=== PATIENT | female | born 1960 | race Caucasian/White ===

== ENCOUNTER 2023-03-13 02:13 | Observation (INO) | payer OTHER ==
--- OUTSIDE RECORDS SUMMARY | 2023-03-13 02:16 | XMS REPORT | Clinical Summary ---
:1960 Author Organization [facility] Center Address [address] [place] [address] Care Team Providers Name Role Phone Nubia Mccormick MD Unavailable Govind Luna MD Primary Care Provider Edgar Hartley MD Unavailable Zamzam Andrade DDS Unavailable [phone] Scott Man DMD Unavailable Allergies No known active allergies Medications Medication Sig Dispensed Refills Start End Date Status Date lisinopril Take 1 0 Active (PRINIVIL,ZESTRIL) 20 tablet (20 1 mg tablet mg) by mouth daily. hydroCHLOROthiazide Take 1 0 Active (HYDRODIURIL) 25 mg tablet (25 1 tablet mg) by mouth daily. omeprazole (PriLOSEC) Take 1 0 Active 20 mg capsule capsule (20 mg) by mouth. amLODIPine (NORVASC) 5 0 Active mg tablet 1 levothyroxine Take 1 0 Active (SYNTHROID, LEVOTHROID) tablet (75 1 75 mcg tablet mcg) by mouth every morning. etodolac (LODINE) 500 0 Active MG tablet 2 traMADol (ULTRAM) 50 mg Take 1 0 Active tablet tablet (50 mg) by mouth every 6 (six) hours as needed. fexofenadine (MAX) Take by 0 07/27/2 0 Discontinued 60 mg tablet mouth daily 23 (Othe r ) as needed. traMADol (Ultram) 50 mg Take 1 30 tablet 0 Discontinued tabletIndications: tablet (50 2 22 (Therapy Acquired deformity of mg) by mouth completed) nose, Basal cell every 6 carcinoma of skin of (six) hours nose, Postoperative as needed pain for moderate pain. cyclobenzaprine 0 06/26/20 Disc ontinued (FLEXERIL) 10 mg tablet 2 22 cyclobenzaprine Take 1 20 tablet 0 02/15/20 Disc ontinued (FLEXERIL) 10 mg tablet (10 2 23 (O ther ) tabletIndications: mg) by mouth Postoperative pain at bedtime. Active Problems Patient Care Coordination Note Formatting of this note might be differe nt from the original. COVID 19 not detected on 04/30/22 done [facility] 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 Head and Neck Surgery and her local greenhouse or nursery transplanter. She was instructed that she may apply Aq uaphor to help with her nasal dryness as Nasogel was too aqueous. Hypertension Arthritis Encounters Date Type Specialty Care Team Description 02/13/2023 Office Visit Plastic Surgery Tessa Whitfield PA Acquired absence of tyron Maldonado MD 02/13/2023 Travel 12/11/2022 Follow-Up Dermatology Dariel Watts, Melanocytic nevus of trunk (Primary Dx); Basal cell carc inoma of skin of nose; Senile angioma; Lentigo; Seborrheic travis tosis 12/11/2022 Travel 11/14/2022 Office Visit Plastic Surgery Joel, Acquired abs ence of MD tyron Hdez 11/14/2022 Hospital Encounter Dental Oncology Scott Man A cquired absence of nose (Primary Dx); DMD Basal cell carc inoma of skin of nose; Basal cell carc inoma of nose 11/14/2022 Travel 11/12/2022 Orders Only Dental Oncology Kianna Almazan, CCA 07/18/2022 Office Visit Plastic Surgery Tessa Whitfield PA Acquired absence of Chrissieo nose MD Lemuel 07/18/2022 Travel 07/03/2022 Surgery Joel, REARRANGEMENT O F MD Lemuel ADJACENT TISSUE FOR REPAIR OF DEFEC T OF EYELID(S) 07/03/2022 Anesthesia Event Dylan Narvaez MD 07/03/2022 Hospital Encounter Joel, Acquired absence of MD tyron Hdez 07/03/2022 Travel 07/02/2022 Anesthesia Event Anesthesiology Dalia Alva RN 07/02/2022 Hospital Encounter Cardiology Tessa Whitfield PA Acqui red absence of nose; Other specified preoperative examination 07/02/2022 Office Visit Plastic Surgery Joel, Acquired abs ence of MD tyron Hdez 07/02/2022 Clinical Support Tessa Davila P A Suspected COVID-19 (Primary Dx); Rebekah Pleitez, Acquired a bsence of nose RN 07/02/2022 Hospital Encounter Lab Tessa Whitfield PA Acqui red absence of nose; Other specified preoperative examination 07/02/2022 POEM Appointments Anesthesiology Govind Luna, Acqu irevenkatesh absence of MD ackerman 07/02/2022 Travel 06/27/2022 Orders Only Plastic Surgery Tessa Whitfield PA Acquired absence of nose (Primary Dx); Other specified preoperative examination 06/26/2022 Orders Only Plastic Surgery Tessa Whitfield PA Postoper ative pain (Primary Dx) 05/31/2022 Consult Dermatology Dariel Watts, Personal hi story of other malignant neoplasm of skin (Primary Dx); Basal cell carc inoma of skin of nose; History of radi ation therapy; Acquired deform ity of nose; Basal cell carc inoma of nose; Actinic keratos is; Seborrheic travis tosis; Melanocytic nev us of trunk; Senile angioma 05/31/2022 Travel 05/03/2022 Hospital Encounter Dental Oncology Scott Man S, Yovana johnnie cell carcinoma of skin of nose (Primary Dx); DMD Acquired absenc e of nose; Basal cell carc inoma of nose 05/03/2022 Travel 04/17/2022 Orders Only Dental Oncology Kianna Almazan, CCA 04/11/2022 Hospital Encounter Head and Neck Miller Sarabia, Acqui red deformity of nose (Primary Dx); Surgery PA Basal cell carc inoma of skin of nose; History of radi ation therapy; Basal cell carc inoma of nose; Encounter for f ollow-up examination after completed treatment for malignant neoplasm 04/11/2022 Office Visit Plastic Surgery Joel, Acquired abs ence of MD Lemuel nose 04/11/2022 Hospital Encounter Lab Miller Sarabia, Basal cell carcinoma of skin of nose; PA History of radi ation therapy 04/11/2022 Ancillary Radiology Miller Sarabia, Basal cell c arcinoma of skin of nose; Procedure PA History of radi ation therapy 04/11/2022 Orders Only Radiology Herber Singleton PA 04/11/2022 Travel 03/27/2022 Orders Only Head and Neck Miller Sarabia, Basal cell carcinoma of skin of nose (Primary Dx); Surgery PA History of radi ation therapy after 03/13/2022 Surgical History Surgery Date Site/Laterality Comments KNEE SURGERY Right multiple knee campoverde rgeries RIGHT knee AZ EXCISION MALIGNANT LESION 10/20/2020 Midline Pro cedure: EXCISION OF F/E/E/N/L 0.5 CM/< MALIGNANT LES ION OF NOSE WITH DELAYED YOEL SURE; Surgeon: Govind Luna MD; Location: MAIN O R; Service: HN - HEAD & NECK SURGERY AZ FREE SKIN FLAP 09/26/2021 Arm Lower/Left Procedure: SAGRARIO E SKIN OR W/MICROVASCULAR ANASTOMOSIS FASC IOCUTANOUS FLAP; Surgeon: Lemuel Maldonado MD; Location: [facility]; Service: PLS - P LAST SURGERY Medical devices from this surgery are in t [employer] section. AZ TISSUE MAINFRAME ARCHITECT PLACEMENT 09/26/2021 Forehead/N/A Pro cedure: Placement of BREAST RECONSTRUCTION foreheadTI SSUE MAINFRAME ARCHITECT; Surgeon: Lemuel Maldonado MD; Location[place] [facility]; Service: PLS - P LAST SURGERY Medical devices from this surgery are in [employer] section. AZ FTH/GFT FREE W/DIRECT 09/26/2021 Abdomen/Midline Procedu re: FULL THICKNESS CLOSURE TRUNK 20 CM/< GRAFT OF T RUNK; Surgeon: Lemuel Maldonado MD; Location: MAIN O R; Service: PLS - PLASTIC [place]AMP[place] RGERY Medical devices from this surgery are in [employer] section. AZ EXC B9 LESION MRGN XCP SK 09/26/2021 Face/Left Pro cedure: EXCISION OF TG F/E/E/N/L/M 0.5CM/< BENIGN LE STEPHANIE OF FACE/EAR/EYELID/ NOSE/LIP/MUC OUS MEMB, INCL M ARGINS (EXCEPT SKIN TAG ); Surgeon: Lemuel Maldonado MD; Location: MAIN O R; Service: PLS - PLASTIC [place] RG[place] Medical devices from this surgery are in [employer] section. AZ TEMPORARY CLOSURE EYELIDS 09/26/2021 Eyelid/Bilateral Pr ocedure: TEMPORARY CLOSURE SUTURE OF EYELIDS USING SUTURE; Surgeon: Lemuel Maldonado MD; [place] [facility]; Service: PLS - P [facility] SURGERY Medical devices from this surgery are in [employer] section. AZ FOREHEAD FLAP 11/09/2021 Forehead/Midline Procedure: FOR EHEAD FLAP; W/PRESERVATION VASCULAR Surgeon: ANA Cota MD; Location: [facility]; Service: PLS - P LASTIC SURGERY AZ REMOVAL TISSUE MAINFRAME ARCHITECT 11/09/2021 Breast/Midline Proce dure: REMOVAL OF TISSUE W/O INSERTION IMPLANT MAINFRAME ARCHITECT; Surgeon: Lemuel Maldonado MD; Lo cation: MAIN OR; Service: PLS - PLASTIC SURGERY AZ CARTILAGE GRAFT 11/09/2021 Chest/N/A Procedure: CO STOCHONDRAL COSTOCHONDRAL CARTILAGE GRAFT; Surgeon: Lemuel Maldonado MD; Location: MAIN O R; Service: PLS - PLASTIC [place]AMP[place] RGERY AZ FTH/GFT FREE W/DIRECT 11/09/2021 N/A Procedu re: FULL THICKNESS CLOSURE N/E/E/L 20 SQ CM/< GRAFT OF NOSE/EAR/EYELID/ LIP; Surgeon: Lemuel Maldonado MD; Location[place]; Service: PLS - P LASTIC SURGERY AZ ADJT TIS TRNSFR/REARRGMT 11/14/2021 Midline Proc edure: REARRANGEMENT OF E/N/E/L DFCT 10 SQ CM/< ADJACENT TISSUE FOR REPAIR OF DEFECT OF NOS E; Surgeon: Lemuel Maldonado MD; Location: MAIN O R; Service: PLS - PLASTIC [place] AZ IV INJECTION TEST VASCULAR 11/14/2021 Forehead/Midline P rocedure: INTRAVENOUS FLOW FLAP/GRAFT INJECTION OF AGE NT (EG, FLUORESCEIN) TO TEST VASCULAR FLOW IN FLAP OR GRAFT (SPY); Royce geon: Lemuel Maldonado MD; Location: MAIN O R; Service: PLS - PLASTIC [place] RG[place] AZ CARTILAGE GRAFT 12/12/2021 Chest/N/A Procedure: CO STOCHONDRAL COSTOCHONDRAL CARTILAGE GRAFT; Surgeon: Lemuel Maldonado MD; Location: MAIN O R; Service: PLS - PLASTIC [place] RG[place] AZ ADJT TIS TRNSFR/REARRGMT 12/12/2021 Midline Proc edure: REARRANGEMENT OF E/N/E/L DFCT 10 SQ CM/< ADJACENT TISSUE FOR REPAIR OF DEFECT OF NOS E; Surgeon: Lemuel Maldonado MD; Location: MAIN O R; Service: PLS - PLASTIC [place] AZ ADJT TIS TRNSFR/REARRGMT 01/18/2022 Midline Proc edure: REARRANGEMENT OF E/N/E/L DFCT 10 SQ CM/< ADJACENT TISSUE FOR REPAIR OF DEFECT OF NOS E; Surgeon: Lemuel Maldonado MD; Location: MAIN O R; Service: PLS - PLASTIC [place] AZ ADJT TIS TRNSFR/REARRGMT 02/22/2022 Forehead/Midline Pro cedure: REARRANGEMENT OF E/N/E/L DFCT 10 SQ CM/< ADJACENT TISSUE FOR REPAIR OF DEFECT OF NOS E; Surgeon: Lemuel Maldonado MD; Location: [facility]; Service: PLS - PLASTIC [place] AZ DELAY FLAP/SCTJ FLAP 02/22/2022 Face/Midline Procedur e: DELAY OF FLAP AT EYELIDS NOSE EARS/LIPS EYELID, N OSE, EAR, LIP; Surgeon: Lemuel Maldonado MD; Location[place] [facility] [place]; Service: PLS - P LASTIC SURGERY AZ ADJT TIS TRNSFR/REARRGMT 07/03/2022 Face/N/A Proc edure: REARRANGEMENT OF E/N/E/L DFCT 10 SQ CM/< ADJACENT TISSUE FOR REPAIR OF DEFECT OF EYE LID(S); Surgeon: Lemuel Maldonado MD; Location[place]; Service: PLS - P LASTIC SURGERY AZ ADJT TIS TRNSFR/REARRGMT 07/03/2022 Face/N/A Proc edure: REARRANGEMENT OF E/N/E/L DFCT 10 SQ CM/< ADJACENT TISSUE FOR REPAIR OF DEFECT OF NOS E; Surgeon: Lemuel Maldonado MD; Location: MAIN O R; Service: PLS - PLASTIC [place] AZ ADJT TIS TRNS/REARGMT 07/03/2022 N/A Procedu re: REARRANGEMENT OF F/C/C/M/N/A/G/H/F 10SQCM/< ADJAC ENT TISSUE FOR REPAIR OF DEFECT OF FOR EHEAD; Surgeon: Lemuel Maldonado MD; [place]; Service: PLS - P LASTIC SURGERY AZ NASAL ENDOSCOPY DIAGNOSTIC 07/03/2022 Nose/N/A Pr ocedure: UNILATERAL OR UNI/BI SPX BILATERAL DIAGNO STIC ENDOSCOPY OF NOS E; Surgeon: Lemuel Maldonado MD; Location: MAIN O R; Service: PLS - PLASTIC [place] [facility] Medical History Medical History Date Comments Hypertension Arthritis Herpes zoster Family History Medical History Relation Name Comments Prostate cancer Father Luis Carlos Galvin Passed with hear t failure Breast cancer Sister Diana Yepez . Relation Name Status Comments Father Luis Carlos Galvin Sister Diana Yepez Social History Tobacco Use Types Packs/Day Years Used Date Smoking Tobacco: Never Smokeless Tobacco: Never Tobacco Cessation: Counseling Given: Not Answered Alcohol Use Standard Drinks/Week Comments Yes 0 (1 standard drink = 0.6 oz pure alcoho l) weekend occasional Sex Assigned at Date Recorded Female 12/10/2020 6:33 PM CDT Job Start Date Occupation Industry Not on file Not on file Not on file Obstetrics History Last Filed Vital Signs Vital Sign Reading Time Taken Comments Blood Pressure 149/74 02/13/2023 11:32 AM CDT Pulse 68 02/13/2023 10:24 AM CDT Temperature 36.6 C (97.9 F) 02/13/2023 10:24 AM CDT Respiratory Rate 18 02/13/2023 10:24 AM CDT Oxygen Saturation 99% 02/13/2023 10:24 AM CDT Inhaled Oxygen Concentration - - Weight 110.6 kg (243 lb 13.3 oz) 07/02/2022 9:27 AM ELDERLY SITTER Height 164 cm (5' 4.57") 07/02/2022 9:27 AM ELDERLY SITTER Body Mass Index 41.12 07/02/2022 9:27 AM ELDERLY SITTER Plan of Treatment Date Type Specialty Care Team Description 04/11/2023 Appointment Lab Miller Sarabia PA [address], [place] [address] (Wo rk) 04/11/2023 Appointment Radiology Miller Sarabia PA [address], [place] [address] (Wo rk) 04/11/2023 Consult Survivorship - Head and Fei Sarabia PA Neck [address], [place] [address] (Wo rk) 06/18/2023 Follow-Up Dermatology Dariel Watts MD [address], [place] [address] (Wo rk) Health Maintenance Due Date Last Done Comments COVID-19 Vaccination (#1) 05/24/1961 Medical Devices Implanted Type Area Form Stripper Device Shelf Model / Identifier Expiration Serial / Date Lot Stitching Department Supervisor Microvascular Anastomotic Device 3.0mm - [id number] CardioPulm Left: Neck 3M SUZY 02/28/2026 [id number] / Implanted: Qty: 1 on 09/26/2021 by Lemuel Maldonado MD at [facility] / [id number] Tissue Lottery Sales Clerk Rectangle 50cc - [id number] Implant N/A: M ENTOR SUZY 08/16/2025 [id number] / Implanted: Qty: 1 on 09/26/2021 by Lemuel Maldonado MD at [facility] Forehead [id number] / Explanted: 11/09/2021 by Lemuel Maldonado MD (Quantity not on file) [id number] Right Acl Repair Procedures Procedure Name Priority Date/Time Associated Comments Diagnosis LASER HAIR REDUCTION Routine 02/13/2023 11:31 AM Acquired abse nce of Results for this CDT nose procedure are i n the results section. LASER HAIR REDUCTION Routine 11/14/2022 11:14 AM Acquired abse nce of Results for this CDT nose procedure are i n the results section. POC GLUCOSE SCREEN Routine 07/03/2022 11:21 AM Re sults for this ELDERLY SITTER procedure are i n the results section. UNILATERAL OR 07/03/2022 6:09 AM Acquired absence of BILATERAL DIAGNOSTIC ELDERLY SITTER nose ENDOSCOPY OF NOSE Special Needs SK @ 5ATotal plastics time 2 hours +45 min; drill with neto chuckie please REARRANGEMENT OF ADJACENT TISSUE 07/03/2022 6:09 AM ELDERLY SITTER Acquired absence of nose FOR REPAIR OF DEFECT OF FOREHEAD Special Needs SK @ 5ATotal plastics time 2 hours +45 min; drill with neto chuckie please REARRANGEMENT OF ADJACENT TISSUE 07/03/2022 6:09 AM ELDERLY SITTER Acquired absence of nose FOR REPAIR OF DEFECT OF NOSE Special Needs SK @ 5ATotal plastics time 2 hours +45 min; drill with neto chuckie please REARRANGEMENT OF ADJACENT TISSUE 07/03/2022 6:09 AM ELDERLY SITTER Acquired absence of nose FOR REPAIR OF DEFECT OF EYELID(S) Special Needs SK @ 5ATotal plastics time 2 hours +45 min; drill with neto chuckie please POC GLUCOSE SCREEN Routine 07/03/2022 6:06 AM Res ults for this ELDERLY SITTER procedure are i n the results section. TMP INTERPRETATION STAT 07/03/2022 6:01 AM Res ults for this ANTIBODY SCREEN NEGATIVE ELDERLY SITTER pro cedure are in the results section. CLOT EXPIRATION DATE STAT 07/03/2022 6:01 AM R esults for this ELDERLY SITTER procedure are i n the results section. ANTIBODY SCREEN STAT 07/03/2022 6:01 AM Result s for this ELDERLY SITTER procedure are i n the results section. ABORH STAT 07/03/2022 6:01 AM Results f or this ELDERLY SITTER procedure are i n the results section. TYPE AND SCREEN STAT 07/03/2022 6:01 AM ELDERLY SITTER FRACTIONATED BILIRUBIN Routine 07/02/2022 8:42 AM Acquired abs ence of Results for this ELDERLY SITTER nose procedure are in Other specified the results preoperative section. examination TOTAL PROTEIN Routine 07/02/2022 8:42 AM Acquired absence of R esults for this ELDERLY SITTER nose procedure are in Other specified the results preoperative section. examination ASPARTATE Routine 07/02/2022 8:42 AM Acquired absence of Re sults for this AMINOTRANSFERASE ELDERLY SITTER nose procedure are in Other specified the results preoperative section. examination ALANINE AMINOTRANSFERASE Routine 07/02/2022 8:42 AM Acquired a bsence of Results for this ELDERLY SITTER nose procedure are in Other specified the results preoperative section. examination ALKALINE PHOSPHATASE Routine 07/02/2022 8:42 AM Acquired absen ce of Results for this ELDERLY SITTER nose procedure are in Other specified the results preoperative section. examination ALBUMIN LEVEL Routine 07/02/2022 8:42 AM Acquired absence of R esults for this ELDERLY SITTER nose procedure are in Other specified the results preoperative section. examination CALCIUM LEVEL TOTAL Routine 07/02/2022 8:42 AM Acquired absenc e of Results for this ELDERLY SITTER nose procedure are in Other specified the results preoperative section. examination .GLOMERULAR FILTRATION Routine 07/02/2022 8:42 AM Acquired abs ence of Results for this RATE ELDERLY SITTER nose procedure are in Other specified the results preoperative section. examination SERUM CREATININE Routine 07/02/2022 8:42 AM Acquired absence o f Results for this ELDERLY SITTER nose procedure are in Other specified the results preoperative section. examination ELECTROLYTE PANEL Routine 07/02/2022 8:42 AM Acquired absence of Results for this ELDERLY SITTER nose procedure are in Other specified the results preoperative section. examination BLOOD UREA NITROGEN Routine 07/02/2022 8:42 AM Acquired absenc e of Results for this ELDERLY SITTER nose procedure are in Other specified the results preoperative section. examination GLUCOSE LEVEL Routine 07/02/2022 8:42 AM Acquired absence of R esults for this ELDERLY SITTER nose procedure are in Other specified the results preoperative section. examination MANUAL DIFFERENTIAL Routine 07/02/2022 8:42 AM Acquired absenc e of Results for this ELDERLY SITTER nose procedure are in Other specified the results preoperative section. examination Results CBC Routine 07/02/2022 8:42 AM Acquired absence of Re sults for this ELDERLY SITTER nose procedure are in Other specified the results preoperative section. examination HEMOGLOBIN A1C Routine 07/02/2022 8:42 AM Acquired absence of Results for this ELDERLY SITTER nose procedure are in Other specified the results preoperative section. examination COMPREHENSIVE METABOLIC Routine 07/02/2022 8:42 AM Acquired ab sence of PANEL ELDERLY SITTER nose Other specified preoperative examination COMPLETE BLOOD COUNT W/ Routine 07/02/2022 8:42 AM Acquired ab sence of DIFFERENTIAL ELDERLY SITTER nose Other specified preoperative examination COVID-19 (SARS-COV-2) Routine 07/02/2022 8:25 AM Suspected COV ID-19 Results for this PCR - ASYMPTOMATIC - [facility] ELDERLY SITTER proc edure are in the results section. EKG, 12-LEAD (SCHEDULED) Routine 07/02/2022 Acquired absence of nose Other specified preoperative examination .GLOMERULAR FILTRATION Routine 04/11/2022 8:00 AM Basal cell Results for this RATE CDT carcinoma of skin procedure are in of nose the results History of section. radiation therapy SERUM CREATININE Routine 04/11/2022 8:00 AM Basal cell Resul ts for this CDT carcinoma of skin procedure are in of nose the results History of section. radiation therapy FREE THYROXINE Routine 04/11/2022 8:00 AM Basal cell Results for this CDT carcinoma of skin procedure are in of nose the results History of section. radiation therapy THYROID STIMULATING Routine 04/11/2022 8:00 AM Basal cell Re sults for this HORMONE CDT carcinoma of skin procedure are in of nose the results History of section. radiation therapy SERUM CREATININE Routine 04/11/2022 8:00 AM Basal cell CDT carcinoma of skin of nose History of radiation therapy BLOOD UREA NITROGEN Routine 04/11/2022 8:00 AM Basal cell Re sults for this CDT carcinoma of skin procedure are in of nose the results History of section. radiation therapy CT SOFT TISSUE NECK W Routine 04/11/2022 7:29 AM Basal cell Results for this CONTRAST CDT carcinoma of skin procedure are in of nose the results History of section. radiation therapy POC CREATININE Routine 04/11/2022 6:51 AM Results for this CDT procedure are i n the results section. after 03/13/2022 Results LASER HAIR REDUCTION (02/13/2023 11:31 AM CDT) Lemuel Singh MD - 02/13/2023 11:31 AM CDT MARY Gilmore 02/18/2023 12:34 PM Laser procedure Site: Nose Date/Time: 02/13/2023 11:31 AM Provider Information: Performed by: MARY Gilmore Authorized by: MARY Gilmore Steam Shovelman present?: yes Steam Shovelman: Lemuel Maldonado MD Patient Diagnosis: Pre-operative diagnosis: Hirsutism of na rachel flap Post-operative diagnosis: unchanged Indication: Indications for procedure: to provide th erapeutic benefit and to provide definitive treatment Anesthesia: Local anesthesia used?: local anesthesia not used Sedation: Patient sedated?: patient not sedated Procedure Details: Procedure was discussed with patient and consent was obtained. Patient was positioned comfortably, timeout performe d, safety eye goggles were provided to the patient. Hair on flap wa s trimmed. Laser was set to appropriate setting, refer to JANNETH lazcano fo r more details. Fluence 40 J/cm2, Spot size 15 mm, On time 25, count of 11 (1 test shot). Patient tolerated procedure well. Specimen(s) Removed: Specimen(s) removed: no specimen collect ed Estimated Blood Loss: Estimated blood loss: none Patient Disposition: Patient disposition: discharge to home Comments: In the process of trying to change the h andpiece for a smaller spot size to get the inferior aspect of the nasal flap it was realized that there was a missing connection piece which pro hibited us from completing the procedure entirely. She will return [facility] when the laser has been fixed for additional therapy. Tessa HERNANDEZ PROCEDURE/MINOR SURGICAL ORD ERABLES LASER HAIR REDUCTION (11/14/2022 11:14 AM CDT) Lemuel Singh MD - 11/14/2022 11:14 AM CDT MARY Gilmore 11/16/2022 1:05 PM Laser procedure Site: Nasal reconstruction/forehead flap Laterality (if applicable): bilateral Date/Time: 11/14/2022 11:14 AM Provider Information: Performed by: MARY Gilmore Authorized by: Lemuel Maldonado MD Steam Shovelman present?: yes Steam Shovelman: MARY Gilmore Patient Diagnosis: Pre-operative diagnosis: Hirsutism of na rachel reconstruction flap Post-operative diagnosis: unchanged Indication: Indications for procedure: to provide de finitive treatment Anesthesia: Local anesthesia used?: local anesthesia not used Sedation: Patient sedated?: patient not sedated Procedure Details: Procedure was discussed with patient and consent was obtained. Patient was positioned comfortably, timeout performe d, safety eye glasses were provided to the patient. Hair on flap wa s trimmed. Laser was set to appropriate setting, refer to JANNETH note fo r more details. Fluence 55 J/cm2, Spot size 12 mm, On time 25 count of 3 ( 1 test shot). Due to concern for interaction with patient's face makeup, makeup was removed and fluence reduced to 40 J/cm2, Spot size 12 mm, On time 25 count of 5(1 test shot). Patient tolerated procedure well. Specimen(s) Removed: Specimen(s) removed: no specimen collect ed Estimated Blood Loss: Estimated blood loss: none Complications: Complications: none Patient Disposition: Patient disposition: discharge to home Comments: Patient will return in 3 month for laser procedure. She was advised to not wear makeup for procedure. Lemuel Maldonado MD PROCEDURE/MINOR SURGICAL ORD ERABLES (ABNORMAL) POC Glucose Screen (07/03/2022 11:21 AM ELDERLY SITTER)Only the most recent of2 resultswithin the time period is included. P athologist Signature POC Glucose 126 (H) 70 - 99 POC TELCOR mg/dL Comment: RN Notified Capillary blood samples, e.g. obtained b y fingerstick, may have inaccurate results in patients with decreased peripheral blood flow. Method description: All results are jose francisco ured using Electrochemistry test methodology. The glucose in the sample mixes with the reagents on the test strip. The reaction produces an electric current. The amount of current produced is proportion al to the glucose concentration in the blood. PO Sample Type Capillary POC TELCOR Performing Lab [facility] POC TELCO R Comment: [facility], [facility] [place] [address]; Lab Direct or: Erin Bridges MD Specimen Anatomical Collection Method Collection Time Receive d Time (Source) Location / / Volume Laterality Blood 07/03/2022 11:21 07/03/2022 AM ELDERLY SITTER 11:21 AM ELDERLY SITTER Lemuel Maldonado MD POCT ORDERABLES - DEVICE Performing Organization Address City/[facility] Phon e Number POC TELCOR Unless otherwise noted, [place] [address] lab tests performed by: Division of Pathology and Laboratory Medicine [address] [place] [address] POC TELCOR Unless otherwise notes, [place] [address] lab tests performed by: Division of Pathology and Laboratory Medicine [address] [place] [address] Clot Expiration Date (07/03/2022 6:01 AM ELDERLY SITTER) [facility] Signature T & S 07/06/2022 [facility] Specimen Anatomical Collection Method Collection Time Receive d Time (Source) Location / / Volume Laterality Blood 07/03/2022 6:01 AM 2 6:56 ELDERLY SITTER AM ELDERLY SITTER Lemuel Maldonado MD BLOOD BANK TEST ORDERABLES Performing Organization Address [facility] Phon e Number [facility] Unless otherwise noted, [place] [address] CENTER all lab tests performed by: Division of Pathology and Laboratory Medicine [address] [place] [address] TMP Interpretation Antibody Screen Negative (07/03/2022 6:01 AM ELDERLY SITTER) [facility] TMP Auto Neg At the [facility] patient plasma shows no evidence of RBC alloantibodi es. Comment: MADELIN GARAY MD, PhD - [id number] Dictated by: MADELIN GARAY MD, Ph D - [id number] Dictated Date/Time: 07.03.2022 11:11 AM ELDERLY SITTER Transcribed Date/Time: 07.03.2022 11:11 AM ELDERLY SITTER Electronically Signed By: MADELIN GARAY MD, PhD - [id number] on 07.03.2022 11:11 AM Specimen Anatomical Collection Method Collection Time Receive d Time (Source) Location / / Volume Laterality Blood 07/03/2022 6:01 AM 2 6:56 ELDERLY SITTER AM ELDERLY SITTER Lemuel Maldonado MD BLOOD BANK TEST ORDERABLES Performing Organization Address City/State/ZIP Code Phon e Number [facility] Unless otherwise noted, [address] all lab tests performed by: Division of Pathology and Laboratory Medicine [address] [place] [address] ABORh (07/03/2022 6:01 AM ELDERLY SITTER) athologist [facility] ABORh. A POS [facility] Specimen Anatomical Collection Method Collection Time Receive d Time (Source) Location / / Volume Laterality Blood 07/03/2022 6:01 AM 2 6:56 ELDERLY SITTER AM ELDERLY SITTER Lemuel Maldonado MD BLOOD BANK TEST ORDERABLES Performing Organization Address City/[facility]/ZIP Code Phon e Number [facility] Unless otherwise noted, [address] all lab tests performed by: Division of Pathology and Laboratory Medicine [address] [place] [address] Antibody Screen (07/03/2022 6:01 AM ELDERLY SITTER) [facility] ABSC. Negative ABSC [facility] Specimen Anatomical Collection Method Collection Time Receive d Time (Source) Location / / Volume Laterality Blood 07/03/2022 6:01 AM 2 6:56 ELDERLY SITTER AM ELDERLY SITTER Lemuel Maldonado MD BLOOD BANK TEST ORDERABLES Performing Organization Address City/[facility] Phon e Number [facility] Unless otherwise noted, [address] all lab tests performed by: Division of Pathology and Laboratory Medicine [address] [place] [address] (ABNORMAL) .Serum Creatinine (07/02/2022 8:42 AM ELDERLY SITTER)Only the most recent of2 resultswithin the time period is included. [facility] Creatinine 1.06 (H) 0.51 - 0.95 [facility] mg/dL Comment: Testing Performed at [facility] Lab Am bulatory Care Bldg, [address] [facility], [address], [place] [address] Specimen Anatomical Collection Method Collection Time Receive d Time (Source) Location / / Volume Laterality Blood 07/02/2022 8:42 AM 2 8:55 ELDERLY SITTER AM ELDERLY SITTER Tessa HERNANDEZ LAB BLOOD ORDERABLES Performing Organization Address City/State/ZIP Code Phon e Number [facility] [place] [address] [address] (ABNORMAL) .CBC (07/02/2022 8:42 AM ELDERLY SITTER) P athologist Signature WBC 8.3 4.0 - 11.0 [facility] K/uL RBC 4.87 4.00 - 5.50 [facility] M/uL Hgb 13.8 12.0 - 16.0 [facility] gm/dL Comment: As part of CBC or as an individ ual orderable testing performed at [facility], [address] [place] [address] , [address], [place] [id number] Hct 43.5 37.0 - 47.0 % [facility] Comment: As part of CBC or as an individ ual orderable testing performed at [facility], [address] [place] [address] , [address], [place] [address] MCV 89 82 - 98 fL [facility] MCH 28.3 27.0 - 31.0 pg [facility] MCHC 31.7 31.0 - 36.0 gm/dL [facility] RDW-SD 49.6 (H) 35.1 - 46.3 fL [facility] RDW-CV 15.1 12.0 - 15.5 % [facility] Platelet count 364 140 - 440 K/uL [facility] Comment: As part of CBC or as an individ ual orderable testing performed at [facility], [address] [place] [address] , [address], [place] [address] MPV 10.8 (H) 4.0 - 10.4 fL [facility] INRBC 0.0 <=0.0 % [facility] Comment: The INRBC (instrument NRBC) value reflec ts the enumeration of nucleated red blood cells contained i n a 200uL sample of whole blood analyzed by the instrumen t. This value may differ from the NRBC value reported in a manual differential, which is based on a 100 cell differentia l. As part of CBC testing performed at [address], [address], [place] [address] Specimen Anatomical Collection Method Collection Time Receive d Time (Source) Location / / Volume Laterality Blood 07/02/2022 8:42 AM 12/12/202 2 8:47 ELDERLY SITTER AM ELDERLY SITTER Tessa HERNANDEZ LAB BLOOD ORDERABLES Performing Organization Address City/State/ZIP Code Phon e Number [address] [place] [address] [address] Glomerular Filtration Rate (07/02/2022 8:42 AM ELDERLY SITTER)Only the most recent of2 resultswithin the time period is included. athologist Signature eGFR 60 >=60 [facility] mL/min/1.73 sq. m Comment: The eGFRcr is calculated with the 2020 KD-EPI creatinine equation using creatinine, patient's age, and sex for adults 18 years of age and older. Other factors, especially muscle mass, may affect accuracy and need to be considered. According to the Kidney Disease: Improvi ng Global Outcomes (KDIGO) CKD Work Group 2012 Clinical Practice Guideline, chronic kidney disease (CKD) is defined as the abnormalities of kidney structure or function, present for more than 3 months, with implications for health. CKD should be c lassified by cause, GFR category, and albuminuria category. KDIGO guidelines provide the following GFR categories Stage Description GFR mL/min/1.73 m2 G1* Normal or high >= 90 G2* Mildly decreased 60-89 G3a Mildly to moderately decreased 45-59 G3b Moderately to severely decreased 30- 44 G4 Severely decreased 15-29 G5 Kidney failure <15 *In the absence of evidence of kidney da mage, neither G1 nor G2 fulfill criteria for CKD. Testing Performed at [facility] Lab University Librarian [facility], [address] [place] [address], [address], [place] [address] Specimen Anatomical Collection Method Collection Time Receive d Time (Source) Location / / Volume Laterality Blood 07/02/2022 8:42 AM 8:55 ELDERLY SITTER AM ELDERLY SITTER Tessa HERNANDEZ LAB BLOOD ORDERABLES Performing Organization Address City/State/ZIP Code Phon e Number [address] [place] [address] [address] Fractionated Bilirubin (07/02/2022 8:42 AM ELDERLY SITTER) athologist Signature Bili Total 0.3 <=1.2 mg/dL [facility] Comment: Indocyanine Green (ICG) may cause falsel y elevated bilirubin results. Total and direct bilirubin must not be measured from samples containing indocyanine green. False elevation of total bilirubin can b e seen in patients with IgG concentrations above 28 g/L. Testing Performed at [facility], [address] [place] [address], [address], [place] [address] Bili Direct <0.2 <=0.3 mg/dL [facility] Comment: Indocyanine Green (ICG) may cause falsel y elevated bilirubin results. Total and direct bilirubin must not be measured from samples containing indocyanine green. Testing Performed at [facility], [facility] [facility], [address], [place] [address] Bili Indirect See Note 0.0 - 0.9 mg/dL [facility] Comment: Unable to calculate Indirect Bilirubin r esult due to some parameters are outside reportable range Testing Performed at [facility], [address] [place] [address], [address], [place] [address] Specimen Anatomical Collection Method Collection Time Receive d Time (Source) Location / / Volume Laterality Blood 07/02/2022 8:42 AM 8:55 ELDERLY SITTER AM ELDERLY SITTER Tessa HERNANDEZ LAB BLOOD ORDERABLES Performing Organization Address City/State/ZIP Code Phon e Number [address] [place] [address] [address] (ABNORMAL) Differential (07/02/2022 8:42 AM ELDERLY SITTER) athologist Signature Neutrophil % 53.1 42.0 - 66.0 [facility] % Comment: As part of Differential perform ed at [facility], [address] [place] [address], [address], [place] [address] Lymphocyte % 30.3 24.0 - 44.0 % [facility] Monocyte % 11.9 (H) 2.0 - 7.0 % [facility] Eosinophil % 3.2 1.0 - 4.0 % [facility] Basophil % 1.0 0.0 - 1.0 % [facility] IGRE % 0.5 (H) 0.0 - 0.4 % [facility] Comment: IGRE % count includes Metamyelocytes, My elocytes, and Promyelocytes. As part of Differential performed at [facility], [address] [place] [address], [address], [place] [address] Neutrophil Abs 4.43 1.70 - 7.30 K/uL [facility] Lymphocyte Abs 2.53 1.00 - 4.80 K/uL [facility] Monocyte Abs 0.99 (H) 0.08 - 0.70 K/uL [facility] Eosinophil Abs 0.27 0.04 - 0.40 K/uL [facility] Basophil Abs 0.08 0.00 - 0.10 K/uL [facility] IG Abs 0.04 0.00 - 0.04 K/uL [facility] Specimen Anatomical Collection Method Collection Time Receive d Time (Source) Location / / Volume Laterality Blood 07/02/2022 8:42 AM 2 8:47 ELDERLY SITTER AM ELDERLY SITTER Tessa HERNANDEZ LAB BLOOD ORDERABLES Performing Organization Address [facility]/[address] [place] [address] [address] (ABNORMAL) BUN (07/02/2022 8:42 AM ELDERLY SITTER)Only the most recent of2 resultswithin the time period is included. P athologist Signature BUN 24 (H) 6 - 23 mg/dL [facility] Comment: Testing Performed at [facility] Am bulatory Care [facility], [address] [place] [address], [address], [place] [address] Specimen Anatomical Collection Method Collection Time Receive d Time (Source) Location / / Volume Laterality Blood 07/02/2022 8:42 AM 2 8:55 ELDERLY SITTER AM ELDERLY SITTER Tessa HERNANDEZ LAB BLOOD ORDERABLES Performing Organization Address City/[facility] e Number [facility] [address] [place] [address]. [place] [address] [address] ALT (07/02/2022 8:42 AM ELDERLY SITTER) P athologist Signature ALT 24 <=33 U/L [facility] Comment: Testing Performed at [facility] Am bulatory Care [facility], [address] [place] [address], [address], [place] [address] Specimen Anatomical Collection Method Collection Time Receive d Time (Source) Location / / Volume Laterality Blood 07/02/2022 8:42 AM 2 8:55 ELDERLY SITTER AM ELDERLY SITTER Tessa HERNANDEZ LAB BLOOD ORDERABLES Performing Organization Address City/[facility]/ZIP Code Phon e Number [facility] [address] [facility] [place] [address] [address] Aspartate Aminotransferase (07/02/2022 8:42 AM ELDERLY SITTER) P athologist Signature AST 24 <=32 U/L [facility] Comment: Testing Performed at [facility] Am [facility] Care Bldg, [address] [facility], [address], [place] [address] Specimen Anatomical Collection Method Collection Time Receive d Time (Source) Location / / Volume Laterality Blood 07/02/2022 8:42 AM 2 8:55 ELDERLY SITTER AM ELDERLY SITTER Tessa HERNANDEZ LAB BLOOD ORDERABLES Performing Organization Address [facility] Phon e Number [facility] [address] [facility] [place] [address] [address] Total Protein (07/02/2022 8:42 AM ELDERLY SITTER) P athologist Signature Total Protein 8.3 6.4 - 8.3 [facility] g/dL Comment: Testing Performed at [facility] Am bulatory Care [facility], [address] [facility], [address], [place] [address] Specimen Anatomical Collection Method Collection Time Receive d Time (Source) Location / / Volume Laterality Blood 07/02/2022 8:42 AM 2 8:55 ELDERLY SITTER AM ELDERLY SITTER Tessa HERNANDEZ LAB BLOOD ORDERABLES Performing Organization Address [facility] Phon e Number [facility] [address] [facility] [place] [address] [address] Alkaline Phosphatase (07/02/2022 8:42 AM ELDERLY SITTER) P athologist Signature Alk Phos 102 35 - 104 U/L [facility] Comment: Testing Performed at [facility] Am bulatory Care dg, [address] [facility], [address], [place] [address] Specimen Anatomical Collection Method Collection Time Receive d Time (Source) Location / / Volume Laterality Blood 07/02/2022 8:42 AM 2 8:55 ELDERLY SITTER AM ELDERLY SITTER Tessa HERNANDEZ LAB BLOOD ORDERABLES Performing Organization Address City/[facility]/ZIP Code Phon e Number [facility] [address] [facility] [place] [address] [address] (ABNORMAL) Hemoglobin A1c (07/02/2022 8:42 AM ELDERLY SITTER) athologist Signature A1C 5.8 (H) 4.3 - 5.6 % [facility] Comment: HbA1c values >=6.5% are diagnostic of di abetes mellitus. Diagnosis should be confirmed by repeat testing. Therapeutic Action suggested: >8.0% HbA1 c; Goal of therapy: <7.0% HbA1c Specimen Anatomical Collection Method Collection Time Receive d Time (Source) Location / / Volume Laterality Blood 07/02/2022 8:42 AM 2 ELDERLY SITTER 10:27 AM ELDERLY SITTER Tessa HERNANDEZ LAB BLOOD ORDERABLES Performing Organization Address City/[facility] Phon e Number [facility] Unless otherwise noted, [place] [address] CENTER all lab tests performed by: Division of Pathology and Laboratory Medicine [address] [place] [address] (ABNORMAL) Glucose Level (07/02/2022 8:42 AM ELDERLY SITTER) athologist Signature Glucose Level 105 (H) 70 - 99 [facility] mg/dL Comment: Effective 02/15/16, the glucose reference intervals have been updated based on [place] [employer] guidelines (Standards of Medical Care in Diabetes 2016. Diabetes Care 2016; 39: S13-S22). Fasting blood glucose: Normal: 70-99 mg/dL Impaired fasting glucose (increased risk for diabetes or pre-diabetes): 100- 125 mg/dL Diabetes mellitus: >/=126 mg/dL Random blood glucose: Normal: 70-199 mg/dL Note: Random glucose >100 mg/dL is assoc iated with increased risk for diabetes Testing Performed at [facility] University Librarian [facility], [address] [facility], [address], [place] [address] Specimen Anatomical Collection Method Collection Time Receive d Time (Source) Location / / Volume Laterality Blood 07/02/2022 8:42 AM 2 8:55 ELDERLY SITTER AM ELDERLY SITTER Tessa HERNANDEZ LAB BLOOD ORDERABLES Performing Organization Address City/[facility]/ZIP [facility] Phon e Number [facility] [address] [facility] [place] [address] [address] (ABNORMAL) Calcium Level (07/02/2022 8:42 AM ELDERLY SITTER) athologist Signature Calcium Lvl 10.4 (H) 8.4 - 10.2 [facility] mg/dL Comment: Testing Performed at [facility] Lab Am bulatory Care dg, [address], [address], [place] [address] Specimen Anatomical Collection Method Collection Time Receive d Time (Source) Location / / Volume Laterality Blood 07/02/2022 8:42 AM 2 8:55 ELDERLY SITTER AM ELDERLY SITTER Tessa HERNANDEZ LAB BLOOD ORDERABLES Performing Organization Address City/State/ZIP Code Phon e Number [facility] [address] [facility] [place] [address] [address] Albumin Level (07/02/2022 8:42 AM ELDERLY SITTER) athologist Signature Albumin Lvl 4.3 3.5 - 5.2 [facility] gm/dL Comment: Testing Performed at [facility] Lab Am bulatory Care [facility], [address], [address], [place] [address] Specimen Anatomical Collection Method Collection Time Receive d Time (Source) Location / / Volume Laterality Blood 07/02/2022 8:42 AM 2 8:55 ELDERLY SITTER AM ELDERLY SITTER Tessa HERNANDEZ LAB BLOOD ORDERABLES Performing Organization Address City/State/ZIP Code Phon e Number [facility] [address] [facility] [place] [address] [address] Electrolyte Panel (07/02/2022 8:42 AM ELDERLY SITTER) athologist Signature Sodium Lvl 138 136 - 145 [facility] mEq/L Comment: Testing Performed at [facility] Lab Am bulatory Care Bldg, [address], [address], [place] [address] Potassium Lvl 4.3 3.5 - 5.1 mEq/L [facility] Comment: Testing Performed at [facility] Lab Am bulatory Care Bldg, [address], [address], [place] [address] Chloride 101 98 - 107 mEq/L [facility] Comment: Testing Performed at [facility] Lab Am bulatory Care [facility], [address], [address], [place] [address] CO2 28 22 - 29 mEq/L [facility] Comment: Testing Performed at [facility] Am bulatory Care Bldg, [address], [address], [place] [address] Anion Gap 9 4 - 14 mEq/L [facility] Comment: Testing Performed at [facility] Am bulatory Care Bldg, [address], [address], [place] [address] Specimen Anatomical Collection Method Collection Time Receive d Time (Source) Location / / Volume Laterality Blood 07/02/2022 8:42 AM 8:55 ELDERLY SITTER AM ELDERLY SITTER Tessa HERNANDEZ LAB BLOOD ORDERABLES Performing Organization Address City/State/ZIP Code Phon e Number [facility] [address] [facility] [place] [address] [address] COVID-19 (SARS-CoV-2) PCR-Asymptomatic [facility] (07/02/2022 8:25 AM ELDERLY SITTER) [facility] Method Time Signature COVID19 (SARS Not Detected Not Detected UT CoV-2) [facility] Comment: This test is a qualitative reverse-trans criptase polymerase chain reaction (RT- PCR) developed for the Nicolle DERICK 6800 system and intended for qualitative detection of SARS CoV-2 RNA in nasopharyngeal a nd oropharyngeal swab specimens collecte d from any individuals, including those suspected o f COVID-19 by their healthcare provider, and those without symptoms or other reasons to suspect COVID-19. A fact sheet for patients provided by the field operations farm manager ( [employer]) can be rev iewed at: https://www.fda.gov/media/050435/eli riddle. A fact sheet for Health Care providers is provided by the field operations farm manager ([employer]) and can be reviewed at: https://www.fda.gov/media/423412/download Results must be interpreted within the c ontext of all relevant clinical and laboratory findings and should not form the sole basis for a diagnosis or treatment decision. Positive results do not rule out bacterial infection or co- infection with other viruses. Negative results do not rule ou t SARS-CoV-2 and must be combined with clinical observations, patient history, and/or epidemiological information. "Presumptive Positive" results are due t o partial amplification of SARS-CoV-2 targets and indicates low amounts of virus present in the specimen at or near the limit of detection. Regardless, individuals with "Presumptive Positive" results should be managed per institutional guidelines as individuals positive for SARS-CoV-2 virus, including use of appropriate infection control protocols. Internal controls are included to assess for possible amplification inhibitors. If inhibition is detected, testing is repeated and if inhibition is confirmed the specimen is resulted as "Invalid". When an "Invalid" result occurs, it is recomm ended to wait 3 days before submitting a new spec imen for testing if clinically indicated. This assay has been approved by the FDA for use only under Emergency Use Authorization (EUA) in laboratories that have been CLIA-certified to perform moderate-complexity and high-complexity tests. The performance characteristics of this assay were verified by the Microbiology Laboratory at [facility] CLIA Accreditation #: [id number] and CAP Accreditation #: [id number]. COVID19 SARS Source SUBSTATION MANAGER Swab [place] MD [facility] COVID19 SARS Indication Pre-OR Procedure [facility] Specimen (Source) Anatomical Collection Method Collection Time Re ceived Time Location / / Volume Laterality Nasopharyngeal Swab 07/02/2022 8:25 07/02 AM ELDERLY SITTER 11:04 AM ELDERLY SITTER Lemuel Maldonado MD MICROBIOLOGY - GENERAL ORDER RAQUEL Performing Organization Address City/State/ZIP Code Phon e Number [facility] Unless otherwise noted, [place] [address] [place] all lab tests performed by: Division of Pathology and Laboratory Medicine [address] [place] [address] EKG, 12-Lead (Scheduled) (07/02/2022) Specimen (Source) Anatomical Location Collection Method / Collectio n Time Received Time / Laterality Volume Narrative This result has an attachment that is no t available. Tessa HERNANDEZ ECG ORDERABLES Performing Organization Address City/State/ZIP Code Phon e Number ANNIE [facility] TSH (04/11/2022 8:00 AM CDT) athologist Signature TSH 3.44 0.27 - 4.20 [facility] mcunit/mL [facility] Specimen Anatomical Collection Method Collection Time Receive d Time (Source) Location / / Volume Laterality Blood 04/11/2022 8:00 AM 2 8:07 CDT AM CDT Narrative [facility] - 04/11 8:48 AM CDT Please coordinate for one day - 04/11 Miller HERNANDEZ LAB BLOOD ORDERABLES Performing Organization Address City/[facility]/ZIP [facility] Phon e Number [facility] [facility] Unless otherwise noted, [address] all lab tests performed by: Division of Pathology and Laboratory Medicine [address] [place] [address] Free T4 (04/11/2022 8:00 AM CDT) P athologist Signature T4 Free 1.43 0.93 - 1.70 [facility] ng/dL DI[facility]NOSTIC CENTER Specimen Anatomical Collection Method Collection Time Receive d Time (Source) Location / / Volume Laterality Blood 04/11/2022 8:00 AM 2 8:07 CDT AM CDT Narrative [facility] - 04/11 8:48 AM CDT Please coordinate for one day - 04/11 Miller HERNANDEZ LAB BLOOD ORDERABLES Performing Organization Address City/[facility] Phon e Number [facility] Unless otherwise noted, [address] all lab tests performed by: Division of Pathology and Laboratory Medicine [address] [place] [address] CT Soft Tissue Neck with Contrast (04/11/2022 7:29 AM CDT) Anatomical Region Laterality Modality Neck Computed Tomography Specimen (Source) Anatomical Collection Method Collection Time Re ceived Time Location / / Volume Laterality 04/11/2022 7:34 AM CDT Impressions 04/11/2022 7:46 AM CDT 1. 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 No obvious recurrence. 2. No cervical adenopathy. Narrative 04/11/2022 7:46 AM CDT FULL RESULT: Examination: CT SOFT TISSUE NECK W CONTR AST on 04/11/2022 7:29 AM Clinical History: Basal cell carcinoma o f skin of nose. Basal cell carcinoma of the nose status post excision 10/20/2020. Postoperative radiation therapy completed 01/03/2021. Total nasal reconstruction and debulking of forehead flap from 02/2022 through 02/22/2022. History of radiation therapy Indication: Basal cell carcinoma Nose - History of Radiation Comparison: 06/27/2021. Technique: Axial images were acquired th rough the soft tissues of the neck with intravenous contrast. Sagittal and coronal reconstructions were created. Findings: Since the prior study from 06/27/2021, t he patient has undergone a total nasal reconstruction. Nodular high attenuation in the midline marked on axial series 2, image 219 and sagittal image 54 is believ ed to be related to the reconstruction. A defect in the left inferior frontal forehead is consistent with a rotational forehead flap. No obvious cutaneous nodularity or irregularity to suggest local recurrence. New surgical clips are present in the le ft submandibular region. No suspicious cervical adenopathy. The thyroid gland is prominent and lower attenuation than expected, possibly related to thyroiditis. No nodules in the visualized lung apices . No enhancing lesions within the visualiz ed brain or orbits. The paranasal sinuses are clear. Well-defined focus of low-attenuation in the posterior C4 vertebral body is stable since at least 10/05/2020. No destructive osseous lesions. Procedure Note Cady Baez MD - 04/11/2022 FULL RESULT: Examination: CT SOFT TISSUE NECK W CONTR AST on 04/11/2022 7:29 AM Clinical History: Basal cell carcinoma o f skin of nose. Basal cell carcinoma of the nose status post excision 10/20/2020. Postoperative radiation therapy completed 01/03/2021. Total nasal reconstruction and debulking of forehead flap from 09/27/19 through 02/22/2022. History of radiation therapy Indication: Basal cell carcinoma Nose - History of Radiation Comparison: 06/27/2021. Technique: Axial images were acquired th rough the soft tissues of the neck with intravenous contrast. Sagittal and coronal reconstructions were created. Findings: Since the prior study from 06/27/2021, t he patient has undergone a total nasal reconstruction. Nodular high attenuation in the midline marked on axial series 2, image 219 and sagittal image 54 is believed to be related to the reconstruction. 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 No obvious cutaneous nodularity or irregularity to suggest local recurrence. New surgical clips are present in the le ft submandibular region. No suspicious cervical adenopathy. The thyroid gland is prominent and lower attenuation than expected, possibly related to thyroiditis. No nodules in the visualized lung apices . No enhancing lesions within the visualiz ed brain or orbits. The paranasal sinuses are clear. Well-defined focus of low-attenuation in the posterior C4 vertebral body is stable since at least 10/05/2020. No destructive osseous lesions. IMPRESSION: 1. 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 No obvious recurrence. 2. No cervical adenopathy. Miller HERNANDEZ IMG CT ORDERABLES POC Creatinine (04/11/2022 6:51 AM CDT) P athologist Signature POC Crea 1.0 0.6 - 1.3 [facility] mg/dL Comment: Medications, especially hydroxyurea or s upplements, such as ascorbate, can interfere with test results causing a falsely and significantly higher result than expected. If a problem is suspected with a patient's result, a sample should be sent to the laboratory for confirmatory testing. Method description: The i-STAT is an vito lyzer used for in vitro quantification of various analytes in whole blood. The device uses a single disposable cartridge which contains microfabricated sensors, a calibration solution, fluidics system, and a waste chamber. Each test cartridge contains ch emically sensitive biosensors on a silicon chip that are configured to perform specific tests. The microfabricated sensors measure analyte concentration by an electrochemical assay. POC eGFR-AA 70 >=60 mL/min/1.73 m2 POC [facility] OR Comment: Normal eGFR >= 60 mL/min/1.73 m2 The eGFR is calculated using the CKD-EPI equation. The eGFR declines with age. eGFR <60 mL/min/1.73 m2 is considered as "decreased" This equation should only be used for patients 18 and older. According to the [employer]'s Kidney Disease Outcome Quality Initiative (KDOQI) classification and 2012 Kidney Disease Improving Global Outcomes (KDIGO) Clinical Practice Guideline, the stage of CKD should be categorized based on estimated GFR. Stage Description GFR mL/min/1.73 m2 1 Kidney damage with normal or high GFR >=90 2 Kidney damage with mild decrease in GF R 60-89 3a Mild to moderate decrease in GFR 45-59 3b Moderate to severe decrease in GFR 30-44 4 Severe decrease in GFR 15-29 5 Kidney failure <15 (or dialysis) POC eGFR-PRADIP 61 >=60 mL/min/1.73 m2 POC [facility] Comment: Normal eGFR >= 60 mL/min/1.73 m2 The eGFR is calculated using the CKD-EPI equation. The eGFR declines with age. eGFR <60 mL/min/1.73 m2 is considered as "decreased" This equation should only be used for patients 18 and older. According to the National [employer]'s Kidney Disease Outcome Quality Initiative (KDOQI) classification and 2012 Kidney Disease Improving Global Outcomes (KDIGO) Clinical Practice Guideline, the stage of CKD should be categorized based on estimated GFR. Stage Description GFR mL/min/1.73 m2 1 Kidney damage with normal or high GFR >=90 2 Kidney damage with mild decrease in GF R 60-89 3a Mild to moderate decrease in GFR 45-59 3b Moderate to severe decrease in GFR 30-44 4 Severe decrease in GFR 15-29 5 Kidney failure <15 (or dialysis) POC Clean Dev Yes POC [facility] Performing Lab Radiology OP CTR POC [facility] OR Comment: Radiology OP CTR [facility], [address] [place] [address]; Point of Care Cylinder Loader: Lori Rothmna MD Specimen Anatomical Collection Method Collection Time Receive d Time (Source) Location / / Volume Laterality Blood 04/11/2022 6:51 AM 2 6:51 CDT AM CDT Miller HERNANDEZ POCT ORDERABLES - DEVICE Performing Organization Address City/State/ZIP Code Phon e Number POC [facility] Unless otherwise noted, [place] [address] lab tests performed by: Division of Pathology and Laboratory Medicine [address] [place] [address] POC [facility] after 03/13/2022 Insurance Payer Benefit Plan / Subscriber ID Effective Dates Phone Addre ss Type Group [employer] MANAGED A[employer] O [id number] 2000-Present [id number] [facility] [place] [address] Natacha Ríos Personal/Famil Self 1960 [address] (Home) [place] [address] Advance Directives Code Status Date Activated Date Inactivated Comments Full Code 07/03/2022 11:56 AM 07/03/2022 2:04 PM Code Status Date Activated Date Inactivated Comments Full Code 02/22/2022 10:42 AM 02/22/2022 12:49 PM Full Code 01/18/2022 10:41 AM 01/18/2022 2:33 PM Full Code 11/10/2021 8:27 AM 11/18/2021 1:57 PM Full Code 11/09/2021 11:20 PM 11/10/2021 8:27 AM Care Teams Pony Trimmer Relationship Specialty Start Date End Date Nubia Mccormick MD PCP - External Dermatology 09/28/20 [id number] [place] [address] Govind Luna MD PCP - General Head and Neck Surgery 10/05/[address] [place] [id number] Edgar Hartley PCP - External Primary Family Practice 11/16/20 MD Jaison Care Provider [address] [place] [address] Zamzam Andrade Consulting Physician Dental Oncology 11/14/20 Cristian DDS [address] [place] [id number] [address] Man, Consulting Physician Dental Oncology 10/10/[address] [place] [id number]
--- OUTSIDE RECORDS SUMMARY | 2023-03-13 02:18 | XMS REPORT | Continuity of Care Document ---
:1960 Author Organization [facility] t Address [address] [place] [id number] Care Team Providers Name Role Phone GEOVANY ORDONEZ Primary Care Physician Unavailable REN MALDONADO Attending Clinician Unavailable SYSTEM, PROVIDER NOT IN Attending Clinician Unavailable FOG_A_Provider Attending Clinician Unavailable Tessa Murray Attending Clinician Ren Maldonado MD Attending Clinician TESSA NGUYEN Attending Clinician Unavailable Radha Francis MD Attending Clinician RADHA FRANCIS Attending Clinician Unavailable Eze Man DMD S Attending Clinician EZE MAN Attending Clinician Unavailable Alessandro Almazan CCA Attending Clinician [phone] Dylan Narvaez MD Attending Clinician Dalia Alva RN Attending Clinician Unavailable Rebekah Pleitez RN Attending Clinician Govind Girard MD Attending Clinician GOVIND GIRARD Attending Clinician Unavailable Alecia Hayden Attending Clinician ALECIA RUTHERFORD Attending Clinician Unavailable Herber Elmore Attending Clinician CARTY, FOREIGN A Attending Clinician Unavailable TAB GORDON Attending Clinician Unavailable TACHO GONZÁLES Attending Clinician Unavailable ANDREW LILLY Attending Clinician Unavailable TABBY MONCADA Attending Clinician Unavailable Hakeem Packer DO Attending Clinician Tabby Moncada MD Attending Clinician Paxton MALDONADO, Rand Pickard Attending Clinician Unavailable ALESSANDRO RODRIGUEZ Attending Clinician Unavailable Only, Sunita [facility] Test Attending Clinician Unavailable Michael FIRING PIN GAUGERAlessandro Attending Clinician MARK MARY Attending Clinician Unavailable TESSA DUTTA Attending Clinician Unavailable CHRISTIE CHAPMAN Attending Clinician Unavailable BRIANA RINCON Attending Clinician Unavailable LELO SILVER Attending Clinician Unavailable REN MALDONADO Admitting Clinician Unavailable FOG_A_Provider Admitting Clinician Unavailable GOVIND GIRARD Admitting Clinician Unavailable Payers Payer Name Policy Type Policy Number Effective Date Expiration Date S tonio [employer]ET[employer] O [id number] 2000 00:00:00 [employer] [id number] 2019 00:00:00 [employer] COMMERCIAL [id number] 2019 OUT OF NETWORK 00:00:00 Problems Condition Condition Condition Status Onset Resolution Last Treating Co mments Source Name Details Category Date Date Treatment Clinician Date History of History of Disease Active U nivers radiation radiation 9- ity of therapy therapy 00:00: [place] [facility] Encounter Encounter Disease Active Uni vers for for 9-21 ity of follow-up follow-up 00:00: Charlette stevens examinatio examinatio n after n after Andbelkis completed completed n treatment treatment [facility] er for for Center malignant malignant neoplasm neoplasm Hypothyroi Hypothyroi Disease Active U nivers dism dism 5-23 ity of 00:00: [facility] Acquired Acquired Disease Active Unive rs deformity deformity 4-11 ity of of nose of nose 00:00: [facility] Acquired Acquired Disease Active Overview: Un valerie absence of absence of 3-07 Formattin ity of nose nose 00:00: g of this note might be Anderso different n from the Cancer original. Center Added automatic ally from request for surgery [id number] Basal cell Basal cell Disease Active Overview : Univers carcinoma carcinoma 3- Formattin i ty of of nose of nose 00:00: g of this [place] 00 note might be Anderso different n from the Cancer original. Center Added automatic ally from request for surgery [id number] Basal cell Basal cell Disease Active Overview : Univers carcinoma carcinoma 3- Formattin i ty of of skin of of skin of 00:00: g of this [place] nose nose 00 note MD might be Anderso different n from the Cancer original. Center Added automatic ally from request for surgery [id number] st Assessmen t & Plan: Formattin g of this note might be different from the original. The patient will continue to follow-up with Head and Neck Surgery and her local dermatolo gist. She was instructe d that she may apply Aquaphor to help with her nasal dryness as Nasogel was too aqueous. Hypertensi Hypertensi Disease Active U nivers on on ity of [place] MD Lesley rockwell [facility] Arthritis Arthritis Disease Active Uni vers ity of [place] MD [facility] No known No known Disease Unive rs active active ity of problems problems [facility] Allergies, Adverse Reactions, Alerts Allergy Allergy Status Severity Reaction(s) Onset Inactive Treating Comm ents Source Name Type Date Date Clinician NO KNOWN Drug Active Univers ALLERGIE Class ity of S [facility] Family History Family Member Diagnosis Comments Start Date Stop Date Source Natural father Prostate cancer Unive rsity of [place] [facility] Natural sister Breast cancer Univers ity of [place] [facility] Social History Social Habit Start Date Stop Date Quantity Comments Source Exposure to Yes University of SARS-CoV-2 [place] Medical (event) Branch Alcohol intake 2022-12-11 2022-12-11 Current drinker of Un iversity of 00:00:00 00:00:00 alcohol (finding) [facility] Tobacco use and 2022-05-31 2022-05-31 Smokeless tobacco Un iversity of exposure 00:00:00 00:00:00 non-user Quincy fang [facility] Alcohol Comment 2020-10-10 2020-10-10 weekend occasional U niversity of 00:00:00 00:00:00 Quincy fang [facility] Sex Ass[birth year] At [birth year] Universit y of 00:00:00 00:00:00 [facility] Smoking Status Start Date Stop Date Source Unknown if ever smoked [facility] Never smoked tobacco [facility] [facility] [place] Medications Ordered Filled Start Stop Current Ordering Indication Dosage Frequency Signature Comments Components Source Medication Medication Date Date Medication? Clinician (SIG) Name Name fexofenadin 2022- No Take by Lazaro valerie e (MAX) 02-14 mouth ity of 60 mg 12:03: 00:00 daily as [place] tablet 17 :00 needed. MD Lesley rockwell [facility] omeprazole Yes 20mg Take 1 Unive rs (PriLOSEC) 02-13 capsule ity of 20 mg 11:18: (20 mg) by [place] capsule 28 mouth. MD Lesley rockwell [facility] traMADol Yes 50mg Take 1 Univers (ULTRAM) 50 02-13 tablet (50 it y of mg tablet 11:18: mg) by [place] 28 mouth every 6 Anderso (six) n hours as Cancer needed. [place] cyclobenzap 2021-07- No Postoperati 10mg Take 1 Univers rine 2-12 26- ve pain tablet (10 ity o f (FLEXERIL) 00:00: 00:00 mg) by Charlette stevens 10 mg 00 :00 mouth at tablet bedtime. Lesley rockwell [facility] cyclobenzap 2021-07 No Unive rs rine 1-03 12-06 ity of (FLEXERIL) 00:00: 00:00 [place] 10 mg 00 :00 MD tablet [facility] traMADol 2021- No Postoperati 50mg Take 1 Univers (Ultram) 50 8-04 12-06 ve pain tablet (50 ity of mg tablet 00:00: 00:00 mg) by [place] 00 :00 mouth every 6 Anderso (six) n hours as Cancer needed for Center moderate pain. etodolac Yes Univers (LODINE) 4-06 ity of 500 MG 00:00: [place] tablet 00 MD Lesley rockwell [facility] proMETHazin 2022-0 2022- No 12.5mg 12.5 mg, Univers e 08-13 IV ity of (PHENERGAN) 14:45: 14:45 [facility] [place] 12.5 mg in 00 :00 ONCE, 1 Medica l NaCl 0.9% dose, On Branch (NS) 50 mL Sun IV 08/13/21 at piggyback 0845, DOMINGA meclizine 2021- No 25mg 25 mg, Unive rs (TRAVEL-EAS 08-13 Oral, ity of E 12:45: 12:04 ONCE, 1 [place] (MECLIZINE) 00 :00 dose, On Medi pop ) tablet 25 Sun Branch mg 08/13/21 at 0645, [facility] meclizine Yes [id number] 25mg Take 1 Un valerei 25 mg -23 tablet by ity of tablet 00:00: mouth [place] 00 every 6 Medical (six) Branch hours as needed for Dizziness. proMETHazin Yes [id number] 25mg Take 1 Univers e 25 mg -23 tablet by ity of tablet 00:00: mouth [place] 00 every 6 Medical (six) Branch hours as needed (dizziness and/or nausea). levothyroxi 2020-07 Yes 75ug Take 1 [facility] ers ne 1-15 tablet (75 ity of (SYNTHROID, 00:00: mcg) by Anthony as LEVOTHROID) 00 mouth MD 75 mcg every Anderso tablet morning. [facility] amLODIPine Yes Univers (NORVASC) 5 5-12 ity of mg tablet 00:00: [place] 00 [facility] lisinopril Yes 20mg Take 1 [facility] rs (PRINIVIL,Z 3-09 tablet (20 it y of ESTRIL) 20 00:00: mg) by [place] mg tablet 00 mouth MD daily. [facility] hydroCHLORO Yes 25mg Take 1 [facility] ers thiazide 3-09 tablet (25 ity o f (HYDRODIURI 00:00: mg) by Charlette Grace) 25 mg 00 mouth MD tablet daily. [facility] Vital Signs Vital Name Observation Time Observation Value Comments Source Systolic blood 2021-08-13 13:50:00 139 mm[Hg] Univer sity of pressure [facility] Diastolic blood 2021-08-13 13:50:00 80 mm[Hg] Unive rsity of pressure [facility] Heart rate 2021-08-13 13:50:00 58 /min Universi ty of [facility] Respiratory rate 2021-08-13 13:50:00 13 /min Univ ersity of [facility] Oxygen saturation in 2021-08-13 13:50:00 98 /min University of Arterial blood by Quincy lord Pulse oximetry Branch Body temperature 2021-08-13 11:28:00 35.78 Marlena Univ ersity of [facility] Body height 2021-08-13 11:28:00 165.1 cm Universi ty of [facility] Body weight 2021-08-13 11:28:00 111.131 kg Universi ty [facility] BMI 2021-08-13 11:28:00 40.77 kg/m2 Universi ty [facility] WEIGHT 2020-10-20 11:29:00 111 kg WEIGHT 2020-10-12 10:29:00 112 kg HEIGHT 2020-10-10 10:15:15 163.1 cm WEIGHT 2020-10-10 10:15:15 111.9 kg HEIGHT 2020-10-05 07:24:00 163 cm WEIGHT 2020-10-05 07:24:00 112 kg Systolic blood 2023-02-13 16:32:00 149 mm[Hg] Univer sity of pressure [facility] Diastolic blood 2023-02-13 16:32:00 74 mm[Hg] Unive rsity of pressure [facility] Heart rate 2023-02-13 15:24:57 68 /min Universi ty of [facility] Body temperature 2023-02-13 15:24:57 36.61 Marlena Univ ersity of [facility] Respiratory rate 2023-02-13 15:24:57 18 /min Univ ersity of [facility] Oxygen saturation in 2023-02-13 15:24:57 99 /min University of Arterial blood by Quincy anne Pulse oximetry [facility] [place] Body height 2022-07-02 15:27:52 164 cm Universi ty of [facility] Body weight 2022-07-02 15:27:52 110.6 kg [facility] MD [facility] BMI 2022-07-02 15:27:52 41.12 kg/m2 [facility] MD [facility] Procedures Procedure Date / Time Performing Clinician Source Performed LASER HAIR REDUCTION 2023-02-13 16:31:00 Tessa Nguyen [facility] [place] LASER HAIR REDUCTION 2022-11-14 16:14:00 Tessa Nguyen [facility] [place] POC GLUCOSE SCREEN 2022-07-03 17:21:00 Ren Maldonado [facility] [place] REARRANGEMENT OF ADJACENT 2022-07-03 12:09:00 Ren Maldonado [facility] TISSUE FOR REPAIR OF [facility] Cancer DEFECT OF EYELID(S) Center REARRANGEMENT OF ADJACENT 2022-07-03 12:09:00 [facility] TISSUE FOR REPAIR OF [facility] Cancer DEFECT OF FOREHEAD Center UNILATERAL OR BILATERAL 2022-07-03 12:09:00 Ren Maldonado [facility] DIAGNOSTIC ENDOSCOPY OF [facility] POC GLUCOSE SCREEN 2022-07-03 12:06:00 Ren Maldonado [facility] TYPE AND SCREEN 2022-07-03 12:01:00 Ren Maldonado [facility] [place] [facility] ABORH 2022-07-03 12:01:00 Ren Maldonado [facility] [place] [facility] ANTIBODY SCREEN 2022-07-03 12:01:00 Ren Maldonado [facility] [place] [facility] CLOT EXPIRATION DATE 2022-07-03 12:01:00 Ren Maldonado [facility] TMP INTERPRETATION 2022-07-03 12:01:00 Ren Maldonado [facility] ANTIBODY SCREEN NEGATIVE MD Khoury [facility] COMPLETE BLOOD COUNT W/ 2022-07-02 14:42:00 Tessa Nguyen [facility] DIFFERENTIAL [facility] COMPREHENSIVE METABOLIC 2022-07-02 14:42:00 Nahid [facility] PANEL [facility] HEMOGLOBIN A1C 2022-07-02 14:42:[address] [facility] Results CBC 2022-07-02 14:42:[address] [facility] MANUAL DIFFERENTIAL 2022-07-02 14:42:00 Nahid [facility] GLUCOSE LEVEL 2022-07-02 14:42:[address] [facility] BLOOD UREA NITROGEN 2022-07-02 14:42:00 Nahid [facility] ELECTROLYTE PANEL 2022-07-02 14:42:00 Nahid [facility] SERUM CREATININE 2022-07-02 14:42:00 Nahid [facility] .GLOMERULAR FILTRATION 2022-07-02 14:42:00 Tessa Nguyen [facility] CALCIUM LEVEL TOTAL 2022-07-02 14:42:00 Nahid [facility] ALBUMIN LEVEL 2022-07-02 14:42:[address] [facility] ALKALINE PHOSPHATASE 2022-07-02 14:42:00 Tessa Nguyen [facility] [place] ALANINE AMINOTRANSFERASE 2022-07-02 14:42:00 Tessa Nguyen [facility] ASPARTATE AMINOTRANSFERASE 2022-07-02 14:42:[address] [facility] TOTAL PROTEIN 2022-07-02 14:42:[address] [facility] FRACTIONATED BILIRUBIN 2022-07-02 14:42:00 Tessa Nguyen [facility] COVID-19 (SARS-COV-2) PCR 2022-07-02 14:25:00 Ren Maldonado [facility] EKG, 12-LEAD (SCHEDULED) 2022-07-02 00:00:00 Tessa Nguyen [facility] BLOOD UREA NITROGEN 2022-04-11 13:00:00 Alecia Rutherford [facility] SERUM CREATININE 2022-04-11 13:00:00 Alecia Rutherford [facility] [place] [facility] THYROID STIMULATING 2022-04-11 13:00:00 Alecia Rutherford [facility] HORMONE [facility] FREE THYROXINE 2022-04-11 13:00:00 Alecia Rutherford [facility] SERUM CREATININE 2022-04-11 13:00:00 Alecia Rutherford [facility] [place] [facility] .GLOMERULAR FILTRATION 2022-04-11 13:00:00 Alecia Rutherford [facility] RATE [facility] CT SOFT TISSUE NECK W 2022-04-11 12:29:00 Alecia Rutherford [facility] CONTRAST [facility] POC CREATININE 2022-04-11 11:51:00 Alecia Rutherford [facility] TROPONIN I 2021-08-13 12:34:00 [facility] [place] COMP. METABOLIC PANEL 2021-08-13 12:34:00 [facility] ([id number]) [facility] CBC WITH DIFF 2021-08-13 12:34:00 [facility] [place] URINALYSIS 2021-08-13 12:13:00 [facility] [place] NOTICE OF PRIVACY 2021-08-13 11:18:46 Doctor Unassmargot, [facility] PRACTICES [facility] CONSENT/REFUSAL FOR 2021-08-13 11:18:18 Doctor Matthew, [facility] DIAGNOSIS AND TREATMENT [facility] Plan of Care Planned Activity Planned Date Details Comments Source Future Scheduled 2023-03-05 COVID-19 Vaccination Uni [facility] Test 08:18:17 (#1) [code = COVID-19 Cancer Vaccination (#1)] Center Encounters Start End Encounter Admission Attending Care Care Encounter Source Date/Time Date/Time Type Type Clinicians Facility Department ID 2021-09-25 Outpatient EBEN MALDONADO Plastic [id number] 15 12:05:29 REN Surg Maycoaram n 2021-03-23 Outpatient EBEN MALDONADO Plastic [id number] 11:07:21 REN Surg Lesley luli 2020-10-10 Outpatient EBEN MALDONADO Plastic [id number] 14:16:28 REN Surg Maycoaram n 2020-09-27 Outpatient SUSANNE EBEN MDA [id number] 10:29:16 PROVIDER Mayco rockwell 2023-03-06 2023-03-06 Outpatient FOG_A_Provi AOSM AOSM [id number] Kiana 00:00:00 00:00:00 nilo [id number] Orthop e [facility] 2023-02-13 2023-02-13 Office Tessa Nguyen 1.2.840.1 [id number] [facility] 11:00:00 13:56:24 Visit Stephanalex Ren 68360.1.1 ity of 3.412.2.7 [place] .3.349716 MD Waldron8 [facility] 2023-02-13 2023-02-13 Outpatient ALAN NGUYEN MDA MDA [id number] 10:18:11 13:56:24 TESSA rockwell 2023-02-13 2023-02-13 Travel 1.2.840.1 1.2.316.381 [id number] Univers 00:00:00 00:00:00 35674.1.1 350.1.13.41 ity of 3.412.2.7 2.[place].7.3.698 [place] .3.351098 084.8 .8 Lesley rockwell [facility] 2022-12-11 2022-12-11 Follow-Up Radha Francis 1.2.840.1 [id number] [facility] 14:45:00 14:57:50 Jerad 29628.1.1 ity of 3.412.2.7 [place] .3.403190 MD Waldron8 [facility] 2022-12-11 2022-12-11 Outpatient RADHA PIMENTEL [facility] MDA [id number] 14:25:57 14:57:50 Mayco rockwell 2022-12-11 2022-12-11 Travel 1.2.840.1 1.2.735.235 [id number] Univers 00:00:00 00:00:00 86345.1.1 350.1.13.41 ity of 3.412.2.7 2.2.7.3.698 [place] .3.005230 084.8 MD Elmore [facility] 2022-11-14 2022-11-14 [facility], 1.2.840.1 [id number] [facility] 08:49:29 23:59:00 Encounter Eze Stevens 05371.1.1 it y of 3.412.2.7 [place] .3.884592 MD Elmore [facility] 2022-11-14 2022-11-14 Outpatient ALAN ALFAEBEN [facility] [id number] [place] 08:49:29 23:59:00 EZE rockwell 2022-11-14 2022-11-14 Office Juan Manuel 1.2.840.1 [id number] [facility] 11:00:00 11:45:35 Visit Ren 14358.1.1 ity of 3.412.2.7 [place] .3.381124 MD Elmore [facility] 2022-11-14 2022-11-14 Outpatient ALAN JUAN MANUELEBEN [facility] [id number] 09:51:14 11:45:35 REN rockwell 2022-11-14 2022-11-14 Travel 1.2.840.1 1.2.779.321 [id number] [facility] 00:00:00 00:00:00 29947.1.1 350.1.13.41 ity of 3.412.2.7 2.2.7.3.698 [place] .3.363928 084.8 MD Waldron8 [facility] 2022-11-12 2022-11-12 Orders Tha, 1.2.840.1 [id number] Univers 00:00:00 00:00:00 Only Alessandro Ignacio 34259.1.1 i ty of 3.412.2.7 [place] .3.372412 MD Elmore [facility] 2022-07-18 2022-07-18 Office NahidTessa 1.2.840.1 [id number] Univers 10:00:00 10:56:53 Visit Ren Maldonado 41222.1.1 ity of 3.412.2.7 [place] .3.154160 MD Waldron8 [facility] 2022-07-18 2022-07-18 Outpatient ALAN NGUYEN MDA MDA [id number] 09:18:11 10:56:53 TESSA rockwell 2022-07-18 2022-07-18 Travel 1.2.840.1 1.2.614.409 [id number] Univers 00:00:00 00:00:00 07357.1.1 350.1.13.41 ity of 3.412.2.7 2.2.7.3.698 [place] .3.256911 084.8 MD Waldron8 [facility] 2022-07-03 2022-07-03 Hospital Juan Manuel 1.2.840.1 [id number] Univers 04:56:00 11:43:00 Encounter Ren 36799.1.1 it y of 3.412.2.7 [place] .3.061275 MD Elmore [facility] 2022-07-03 2022-07-03 Outpatient ALAN MALDONADO [facility] Plastic [id number] MD 04:56:00 11:43:00 REN Surg Mayco rockwell 2022-07-03 2022-07-03 Surgery Juan Manuel 1.2.840.1 [id number] Univers 07:00:00 11:35:00 Ren 02394.1.1 ity of 3.412.2.7 [place] .3.210657 MD Elmore [facility] 2022-07-03 2022-07-03 Anesthesia Narvaez, 1.2.840.1 [id number] Univers 06:45:00 09:23:00 Event Dylan 02954.1.1 ity of 3.412.2.7 [place] .3.784833 MD Waldron8 [facility] 2022-07-03 2022-07-03 Travel 1.2.840.1 1.2.943.144 [id number] Univers 00:00:00 00:00:00 08705.1.1 350.1.13.41 ity of 3.412.2.7 2.2.7.3.698 [place] .3.932046 084.8 .8 [facility] 2022-07-02 2022-07-02 Anesthesia Alva, 1.2.840.1 [id number] Univers 23:59:59 23:59:59 Event Dalia Pinto 33902.1.1 ity of 3.412.2.7 [place] .3.642227 MD Waldron8 [facility] 2022-07-02 2022-07-02 [facility], 1.2.840.1 [id number] [facility] 10:37:09 23:59:00 Encounter Tessa 12190.1.1 it y of 3.412.2.7 [place] .3.318608 MD Elmore [facility] 2022-07-02 2022-07-02 Outpatient [facility] EBEN [id number] 10:37:09 23:59:00 TESSA rockwell 2022-07-02 2022-07-02 [facility], 1.2.840.1 [id number] Univers 08:29:11 10:36:00 Encounter Tessa 58752.1.1 it y of 3.412.2.7 [place] .3.308957 MD Waldron8 [facility] 2022-07-02 2022-07-02 Outpatient [facility] EBEN [id number] [place] 08:29:11 10:36:00 TESSA rockwell 2022-07-02 2022-07-02 Office Juan Manuel 1.2.840.1 [id number] [facility] 10:00:00 10:23:06 Visit Ren 20542.1.1 ity of 3.412.2.7 [place] .3.243183 MD [facility] 2022-07-02 2022-07-02 Outpatient ALAN MALDONADO EBEN [facility] [id number] 09:18:30 10:23:06 REN rockwell 2022-07-02 2022-07-02 Tessa Schumacher 1.2.840.4 [id number] [facility] 09:30:00 09:30:00 Support Maik Rebekah L 58974.1.1 ity of 3.412.2.7 [place] .3.040216 MD Elmore [facility] 2022-07-02 2022-07-02 JANUSZ Girard 1.2.840.1 [id number] [facility] 08:00:00 08:30:00 Appointdustin Stevens 23554.1.1 ity of ts 3.412.2.7 [place] .3.280252 MD Elmore [facility] 2022-07-02 2022-07-02 Outpatient ALAN NGUYNE MDA MDA [id number] 08:20:47 08:27:13 TESSA rockwell 2022-07-02 2022-07-02 Outpatient ALAN GIRARDEBEN [facility] [id number] 07:01:32 07:01:32 GOVIND rockwell 2022-07-02 2022-07-02 Travel 1.2.840.1 1.2.828.053 [id number] Univers 00:00:00 00:00:00 59426.1.1 350.1.13.41 ity of 3.412.2.7 2.[place].7.3.698 [place] .3.196072 084.8 MD Waldron8 [facility] 2022-06-27 2022-06-27 Junior Nguyen 1.2.840.1 [id number] Univers 00:00:00 00:00:00 Only Tessa 18753.1.1 ity of 3.412.2.7 [place] .3.695835 MD Elmore [facility] 2022-06-26 2022-06-26 [facility], 1.2.840.1 [id number] Univers 00:00:00 00:00:00 Only Tessa 59658.1.1 ity of 3.412.2.7 [place] .3.443202 MD Waldron8 [facility] 2022-05-31 2022-05-31 Consult Radha Francis 1.2.840.1 [id number] Univers 10:00:00 11:07:39 Jerad 40318.1.1 ity of 3.412.2.7 [place] .3.969807 MD Waldron8 [facility] 2022-05-31 2022-05-31 Outpatient RADHA PIMENTEL [facility] MDA [id number] 09:55:37 11:07:39 Mayco [facility] 2022-05-31 2022-05-31 Travel 1.2.840.1 1.2.635.812 [id number] Univers 00:00:00 00:00:00 01878.1.1 350.1.13.41 ity of 3.412.2.7 2.2.7.3.698 [place] .3.687630 084.8 MD Elmore [facility] 2022-05-03 2022-05-03 [facility], 1.2.840.1 [id number] Univers 08:20:15 23:59:00 Encounter Eze Stevens 90440.1.1 it y of 3.412.2.7 [place] .3.185638 MD Elmore [facility] 2022-05-03 2022-05-03 Outpatient ALAN MAN MDA MDA [id number] MD 08:20:15 23:59:00 EZE Maycoopal rockwell 2022-05-03 2022-05-03 Travel 1.2.840.1 1.2.085.914 [id number] Univers 00:00:00 00:00:00 53843.1.1 350.1.13.41 ity of 3.412.2.7 2.2.7.3.698 [place] .3.302958 084.8 .8 [facility] 2022-04-17 2022-04-17 Orders Elgin, 1.2.840.1 [id number] [facility] 00:00:00 00:00:00 Only Alessandro Ignacio 52835.1.1 i ty of 3.412.2.7 [place] .3.367826 .8 [facility] 2022-04-11 2022-04-11 [facility], 1.2.840.1 [id number] [facility] 10:12:12 23:59:00 Encounter Alecia Stevens 63076.1.1 it y of 3.412.2.7 [place] .3.621808 MD Elmore [facility] 2022-04-11 2022-04-11 Outpatient [facility] [id number] [place] 10:12:12 23:59:00 ALECIA rockwell 2022-04-11 2022-04-11 [facility], 1.2.840.1 [id number] [facility] 07:42:00 10:11:00 Encounter Alecia Stevens 05862.1.1 it y of 3.412.2.7 [place] .3.175897 MD [facility] 2022-04-11 2022-04-11 Outpatient [facility] [id number] 07:42:00 10:11:00 ALECIA rockwell 2022-04-11 2022-04-11 [facility] Juan Manuel .2.840.1 [id number] [facility] 09:00:00 09:16:43 Visit Ren 26867.1.1 ity of 3.412.2.7 [place] .3.679822 MD Waldron8 [facility] 2022-04-11 2022-04-11 Outpatient ALAN MALDONADO MDA MDA [id number] 08:21:18 09:16:43 REN rocwkell 2022-04-11 2022-04-11 [facility], 1.2.840.1 [id number] Univers 06:05:00 07:30:00 Procedure Alecia Fei 39775.1.1 it y of 3.412.2.7 [place] .3.876930 MD Waldron8 [facility] 2022-04-11 2022-04-11 Outpatient ALAN SANGEETAEBEN MDA [id number] MD 06:26:08 06:26:08 ALECIA rockwell 2022-04-11 2022-04-11 Orders Singleton, 1.2.840.1 [id number] Univers 00:00:00 00:00:00 Only Herber 17898.1.1 ity of [place] 3.412.2.7 [place] .3.446072 .8 [facility] 2022-04-11 2022-04-11 Travel 1.2.840.1 1.2.505.176 [id number] Univers 00:00:00 00:00:00 43681.1.1 350.1.13.41 ity of 3.412.2.7 2.[place].3.698 [place] .3.552076 084.8 .8 [facility] 2022-03-27 2022-03-27 Junior Rutherford, 1.2.840.1 [id number] Univers 00:00:00 00:00:00 Only Alecia Stevens 57121.1.1 ity of 3.412.2.7 [place] .3.543843 MD Waldron8 [facility] 2022-03-07 2022-03-07 Outpatient ALAN NGUYEN MDA MDA [id number] 11:01:10 11:29:01 TESSA rockwell 2022-02-22 2022-02-22 Outpatient ALAN MALDONADO MDA Plastic [id number] 05:16:00 10:43:00 REN rockwell 2022-02-21 2022-02-21 Outpatient FOREIGN CASTANEDA MDA MDA [id number] 09:28:24 23:59:00 Mayco rockwell 2022-02-21 2022-02-21 Outpatient FOREIGN CASTANEDA MDA MDA [id number] 09:05:39 09:56:09 Mayco rockwell 2022-02-21 2022-02-21 Outpatient EL ERA, MDA MDA [id number] 08:08:15 08:08:15 GOVIND rockwell 2022-02-07 2022-02-07 Outpatient EL LILIAMO, MDA MDA [id number] 08:12:40 09:29:31 REN rockwell 2022-01-18 2022-01-18 Outpatient EL STEPHANASONO, MDA Plastic [id number] 05:05:00 11:38:00 REN rockwell 2022-01-17 2022-01-17 Outpatient EL ALTERS, MDA MDA [id number] 09:51:19 09:51:19 TAB rockwell 2022-01-17 2022-01-17 Outpatient EL ALTERS, MDA MDA [id number] 09:03:11 09:43:05 TAB rockwell 2021-11-15 2021-11-15 Inpatient EL STEPHANASONO, MDA MDA [id number] 13:26:36 13:46:57 REN rockwell 2021-11-14 2021-11-14 Inpatient EL STEPHANASONO, MDA MDA [id number] 20:50:29 21:00:05 REN rockwell 2021-11-14 2021-11-14 Inpatient EL STEPHANASONO, MDA MDA [id number] 02:45:14 03:06:15 REN rockwell 2021-11-12 2021-11-12 Inpatient EL STEPHANASONO, MDA MDA [id number] 17:33:13 18:14:48 REN rockwell 2021-11-09 2021-11-09 Inpatient UR STEPHANASONO, MDA HN Surgery [id number] 08:50:00 08:50:00 REN rockwell 2021-11-08 2021-11-08 Outpatient EL ROSTANT, MDA MDA [id number] 09:39:38 23:59:00 TACHO rockwell 2021-11-08 2021-11-08 Outpatient EL ALTERS, MDA MDA [id number] 09:01:49 09:08:46 TAB rockwell 2021-11-08 2021-11-08 Outpatient EL ALTERS, MDA MDA [id number] 07:35:37 07:35:37 TAB rockwell 2021-11-01 2021-11-01 Outpatient EL STEPHANASONO, MDA MDA [id number] 08:13:07 09:27:54 REN rockwell 2021-10-23 2021-10-23 Outpatient EL STEPHANASONO, MDA MDA [id number] 09:22:10 10:32:15 REN rockwell 2021-10-11 2021-10-11 Outpatient EL STEPHANASONO, MDA MDA [id number] 10:18:13 11:03:35 REN rockwell 2021-10-04 2021-10-04 Outpatient EL STEPHANASONO, MDA MDA [id number] 09:01:31 10:55:39 REN rockwell 2021-09-26 2021-10-01 Inpatient EL STEPHANASONO, MDA Plastic [id number] 04:53:00 11:20:00 REN rockwell 2021-09-30 2021-09-30 Inpatient EL LILIAMO, MDA MDA [id number] 03:52:19 04:07:47 REN rockwell 2021-09-25 2021-09-25 Outpatient EL LILLY, MDA MDA [id number] 11:15:00 23:59:00 ANDREW rockwell 2021-09-25 2021-09-25 Outpatient EL ALTERS, MDA MDA [id number] 10:16:30 16:14:25 TAB rockwell 2021-09-25 2021-09-25 Outpatient EL STEPHANASONO, MDA MDA [id number] 08:43:42 10:05:37 REN rockwell 2021-08-13 2021-08-13 Emergency Sue MONCADA [facility] ERT [id number] Univers 05:20:00 08:02:00 TABBY mireles [facility] 2021-08-13 2021-08-13 Emergency Hakeem Packer [facility] 1.2.840. 114 [id number] Univers 05:20:00 08:02:00 Tabby Moncada 350.1.13.10 ity of [place] [id number] [facility] [address] 2021-07-28 2021-07-28 Letter LYNDA Matta 1.2.840.114 [id number] Univers 00:00:00 00:00:00 (Out) Rand Melly BROOKS 350.1.13.10 it y of [facility] 4.2.7.2.686 Anthony as [id number] [facility] [address] 2021-07-26 2021-07-26 Outpatient R MICHAEL, [facility] [id number] Univers 20:00:00 20:33:12 ALESSANDRO alvarengay o f [facility] 2021-07-26 2021-07-26 Laboratory Only, [facility] Test SALTY 1.2.8 40.114 [id number] Univers 20:00:00 20:15:00 Only Alessandro Rodriguez Bethany PEDIATRIC 350.1.13. 10 [place] [id number] [facility] PRIMARY [address] C[facility]IC 2021-06-27 2021-06-27 Outpatient MARK OVIEDO MDA MDA [id number] 09:53:56 23:59:00 Mayco rockwell 2021-06-27 2021-06-27 Outpatient ALAN DUTTA MDA MDA [id number] 07:00:58 09:52:00 TESSA rockwell 2021-06-27 2021-06-27 Outpatient ALAN DUTTA MDA MDA [id number] 07:00:00 07:00:00 TESSA rockwell 2021-03-22 2021-03-22 Outpatient CHRISTIE HAYWOOD MDA MDA [id number] 11:14:07 23:59:00 Mayco rockwell 2021-03-22 2021-03-22 Outpatient ALAN MALDONADO MDA MDA [id number] 08:10:50 09:16:39 REN rockwell 2021-03-21 2021-03-21 Outpatient ALAN RINCON MDA MDA [id number] 08:29:27 23:59:00 BRIANA rockwell 2021-03-21 2021-03-21 Outpatient EL MCKENZIE, MDA MDA [id number] MD 08:58:21 08:58:21 BRIANA rockwell 2021-03-15 2021-03-15 Outpatient EL ALFA, MDA MDA [id number] 09:00:00 23:59:00 EZE rockwell 2021-03-15 2021-03-15 Outpatient EL ERA, MDA MDA [id number] MD 07:53:27 08:59:00 GOVIND rockwell 2021-03-14 2021-03-14 Outpatient EL GIRARD, MDA MDA [id number] MD 07:40:29 23:59:00 GOVIND rockwell 2021-03-14 2021-03-14 Outpatient EL ERA, MDA MDA [id number] 12:55:38 13:03:57 GOVIND rockwell 2021-03-01 2021-03-01 Outpatient EL ALFA, MDA MDA [id number] 07:53:31 23:59:00 EZE rockwell 2021-02-28 2021-02-28 Outpatient EL ALFA, MDA MDA [id number] MD 07:52:38 23:59:00 EZE rockwell 2021-02-27 2021-02-27 Outpatient ALAN GIRARD, MDA MDA [id number] MD 10:34:46 10:51:09 GOVIND rockwell 2021-01-30 2021-01-30 Outpatient EL ALFA, MDA MDA [id number] 08:52:34 23:59:00 EZE rockwell 2020-10-21 2020-10-21 Outpatient EL GIRARD, MDA MDA [id number] MD 07:18:12 07:18:12 GOVIND rockwell 2020-10-20 2020-10-20 Outpatient EL GIRARD, MDA HN Surgery [id number] MD 11:13:00 15:39:00 GOVIND rockwell 2020-10-19 2020-10-19 Outpatient EL HEIDI, MDA MDA [id number] MD 07:25:35 08:00:20 TAB rockwell 2020-10-13 2020-10-13 Outpatient EL GIRARD, MDA HN Surgery [id number] 05:32:00 07:13:00 GOVIND rockwell 2020-10-12 2020-10-12 Outpatient ALAN GIRARD MDA MDA [id number] 10:23:29 23:59:00 GOVIND rockwell 2020-10-12 2020-10-12 Outpatient ALAN GIRARD MDA MDA [id number] 07:12:57 07:12:57 GOVIND rockwell 2020-10-11 2020-10-11 Outpatient ALAN RUTHERFORD MDA MDA [id number] 11:20:35 11:39:05 ALECIA rockwell 2020-10-10 2020-10-10 Outpatient ALAN MAN MDA MDA [id number] 08:14:51 23:59:00 EZE rockwell 2020-10-10 2020-10-10 Outpatient ALAN MALDONADO MDA MDA [id number] 10:08:12 12:00:06 REN rockwell 2020-10-10 2020-10-10 Outpatient ALAN MAN MDA MDA [id number] 08:07:32 08:13:00 EZE rockwell 2020-10-05 2020-10-05 Outpatient ALAN RUTHERFORD MDA MDA [id number] 09:05:14 23:59:00 ALECIA rockwell 2020-10-05 2020-10-05 Outpatient ALAN RUTHERFORD MDA MDA [id number] 08:45:00 09:04:00 ALECIA rockwell 2020-10-05 2020-10-05 Outpatient ALAN GIRARD MDA MDA [id number] 06:48:47 08:44:00 GOVIND rockwell 2020-10-05 2020-10-05 Outpatient EBEN MDA [id number] 06:45:34 06:45:34 Mayco rockwell 2020-10-03 2020-10-03 Outpatient ALAN SILVER MDA MDA [id number] 10:27:33 10:35:18 LELO rockwell Results Test Description Test Time Test Comments Results Result Comments Source POC Glucose Screen 2022-07-03 17:33:12 Test Item Value Reference Range Interpretation Comme nts POC Glucose (test code = 126 mg/dL 70-99 H [facility] 5651) samples, e.g. o btained by fingerstick, ma y have inaccurate results in shelly ents with decreased perip heral blood flow. Method descript ion: All results are measured us ing Electrochemistr y test methodology. Th e glucose in the sample mixes wi th the reagents on the test str ip. The reaction produces an anabel ctric current. The amount of c urrent produced is proportional to the glucose concentration i n the blood. PO Sample Type (test code = Capillary 9554) Performing Lab (test code = [facility] 71354) MD [facility], [address] [place] [address]; Lab Dire ctor: Erin Bridges MD Lab Interpretation (test code Abnormal = 50129-8) [facility] Interpretation Antibody Screen [id number] 17:11:19 Test Item Value Reference Range Interpretation Comments TMP Auto Neg At the present ABSC Interp time, patient (test code = plasma shows no ____MADELIN CRUZ 7535) evidence of RBC MD TANISHA, P hD - alloantibodies. [id number] d by: Blair RODRIGUEZ, PhD - [id number] D ate/Time: 07.03.2022 11:1 1 AM ELECTRONICS REPAIR TECHNICIAN Transcribed Darryl e/Time: 07.03.2022 11:1 1 AM CSTElectronical ly Signed By: MADELIN GARAY MD, PhD - [id number] on 07.03.2022 1 1:11 AM [facility] CenterAntibody [id number] 14:44:59 Test Item Value Reference Range Interpretation Comments ABSC. (test code = 890-4) Negative ABSC [facility] CenterABORh2022-12-13 14:44:58 Test Item Value Reference Range Interpretation Comments ABORh. (test code = 882-1) A POS [facility] CenterClot Expiration [id number] 14:44:57 Test Item Value Reference Range Interpretation Comments T & S Expiration (test code = 07/06/2022 5318) [facility] Cancer HammondCOVID-19 (SARS-CoV-2) PCR- Asymptomatic [id number] 00:08:28 Test Item Value Reference Range Interpretation Comments COVID19 (SARS Not Detected Not Detected CoV-2) Result (test code = ____This test i s a 69999-7) qualitative reverse-transcr iptase polymerase theresa n reaction (RT-PC R) developed for t he Nicolle DERICK 680 0 system and inte nded for qualitative detection of SA RS CoV-2 RNA in nasopharyngeal and oropharyngeal s wab specimens colle cted from any indivi duals, including those suspected of CO VID-19 by their health care provider, and t hose without symptom s or other reasons t o suspect COVID-1 9. A fact sheet for patients provid ed by the manufacture r ([employer]) c an be reviewed at:https://www. fda.go v/media/772625/ downlo ad. A fact shee t for Health Care pro viders is provided by the senior nurse manager ([employer]) and can be reviewed at: https://www.fda .gov/m edia/241398/sybil nload Results must be interpreted wit hin the context of all relevant clinic al and laboratory find ings and should not form the sole basis for a diagnosis or treatment decis ion. Positive result s do not rule out bacterial infec tion or co-infection with other viruses. Negative result s do not rule out SARS-CoV-2 and must be combined wit h clinical observations, p atient history, and/or epidemiological information. "Presumptive Positive" resul ts are due to partial amplification o f SARS-CoV-2 targ ets and indicates l ow amounts of viru s present in the specimen at or near the limit of detection. Regardless, individuals wit h "Presumptive Positive" resul ts should be manag ed per institutional guidelines as individuals pos itive for SARS-CoV-2 virus, including use o f appropriate inf ection control protoco ls. Internal contro ls are included to ass ess for possible amplification inhibitors. If inhibition is detected, testi ng is repeated and if inhibition is confirmed the specimen is res ulted as "Invalid". W hen an "Invalid" resul t occurs, it is recommended to wait 3 days before submitting a ne w specimen for te sting if clinically indicated. This assay has been approv ed by the FDA for use only under Emergency Use Authorization ( EUA) in laboratories that have been CLIA-certified to perform moderate-comple xity and high-comple xity tests. The performance characteristics of this assay were verified by the Microbiology Laboratory at [facility], CLIA Accreditation # : [id number] and CAP Accreditation # : [id number]. COVID19 SARS FIRING PIN GAUGER Swab Source (test code = 17946) COVID19 SARS Pre-OR Procedure Indication (test code = 80627) [facility] CenterHemoglobin [id number] 16:56:50 Test Item Value Reference Range Interpretation Comments A1C (test code = 4548-4) 5.8 % 4.3-5.6 H HbA 1c values >=6.5% are diagnostic of diabetes mellitus.Diagno sis should be confi rmed by repeat testing.Therape utic Action suggeste d: >8.0% HbA1c; Go al oftherapy: <7.0 % HbA1c Lab Interpretation (test Abnormal code = 53330-5) [facility] CenterElectrolyte [id number] 15:21:33 Test Item Value Reference Range Interpretation Comments Sodium Lvl (test code = 138 See_Comment Test ing Performed at [facility] 2951-2) Lab Np Bldg, [address], [address], [place] [address] [Automated mess age] The system which ge nerated this result tra nsmitted reference range : 136 - 145 mEq/L. The reference range was not u sed to interpret this result as normal/abnormal . Potassium Lvl (test 4.3 See_Comment Testing Performed at [facility] code = 2823-3) Lab Ambulator y Care Bldg, [address], [address], [place] [address] [Automated mess age] The system which ge nerated this result tra nsmitted reference range : 3.5 - 5.1 mEq/L. The reference range was not u sed to interpret this result as normal/abnormal . Chloride (test code = 101 See_Comment Testin g Performed at [facility] ) Lab Np Bldg, [address], [address], [place] [address] [Automated mess age] The system which ge nerated this result tra nsmitted reference range : 98 - 107 mEq/L. The refe rence range was not u sed to interpret this result as normal/abnormal . CO2 (test code = 28 See_Comment Testing Per formed at [facility] 2028-03) Lab Np Bldg, [address], [address], [place] [address] [Automated mess age] The system which ge nerated this result tra nsmitted reference range : 22 - 29 mEq/L. The refe rence range was not u sed to interpret this result as normal/abnormal . Anion Gap (test code = 9 See_Comment Testi ng Performed at [facility] 51977-0) Lab Np Bldg, [address], [place] [address] [Automated mess age] The system which ge nerated this result tra nsmitted reference range : 4 - 14 mEq/L. The refe rence range was not u sed to interpret this result as normal/abnormal . [facility] HammondFractionated [id number] 15:21:29 Test Item Value Reference Range Interpretation Comments Bili Total (test 0.3 mg/dL <=1.2 Indocyanine Green (ICG) code = 1974-) may cause fal sely elevated biliru bin results. Total and direct bilirubin must not be measured from s amples containing indo cyanine green. False el evation of total bilirubin can be seen in patient s with IgG concentrations above 28 g/L.Testing Per formed at [facility] Lab Ambulat ory Care [facility], [address], [place] [address] Bili Direct (test <=0.3 Indocyanin e Green (ICG) code = 1967-) may cause fal sely elevated biliru bin results. Total and direct bilirubin must not be measured from s amples containing indo cyanine green. Testing Performed at [facility] Lab Ambu latory Care [facility], [address], [place] [address] Bili Indirect (test See Note 0.0-0.9 Unable t o calculate code = 1970-07) Indirect Bili zendejas result due to some par ameters are outside rep ortable rangeTesting Pe rformed at [facility] Lab Ambulat ory Care dg, [address], [address], [place] [address] [facility] CenterGlomerular Filtration Rate 2022-07-02 15:21:27 Test Item Value Reference Range Interpretation Comments eGFR (test code = 60 See_Comment The eGFRcr is calculated with [address]) the 2020 CKD-EP I creatinine equation using creatinine, patient's age, and sex for adults 18 years of age and older. Other fa ctors, especially musc le mass, may affect accuracy and need to be considered.A ccording to the Kidney Dise ase: Improving Global Outcomes (KDIGO) CKD Work Group 2012 Clinical Practice Guidel ine, chronic kidney disease (CKD) is defined as the abnormalities of kidney struc ture or function, prese nt for more than 3 months, with implications fo r health. CKD should be class ified by cause, GFR macy gory, and albuminuria cat egory. KDIGO guidelines prov magdi the following GFR c ategoriesStage Description GFR mL/min/1.73 m2G1* Normal or high >= 90G2* Mildly decrease d 60-89G3a Mildly to moder ately decreased 45-59 G3b Moderately to severely dec reased 30-44G4 Severely decrea sed 15-29G5 Kidney failure <15*In the absence of evid ence of kidney damage, neither G1 nor G2 fulfill criteri a for CKD. Testing Perform ed at [facility] Lab Np [facility], [address], [place], [place] [address] [Automated message] The sy stem which generated this result transmitted ref erence range: >=60 mL/min/1.7 3 sq. m. The reference range was not used to interpret th is result as normal/abnormal . [facility] CenterTotal [id number] 15:21:26 Test Item Value Reference Range Interpretation Comments Total Protein (test 8.3 g/dL 6.4-8.3 Testing Performed at [facility] code = 2885-2) Lab Ambulator y Care [facility], [address], [place] [address] [facility] CenterCalcium [id number] 15:21:25 Test Item Value Reference Range Interpretation Comments Calcium Lvl (test code = 10.4 mg/dL 8.4-10.2 H Hope ting Performed 76674-4) at [facility] Lab Np [facility], [address], [place], [place] [address] Lab Interpretation (test Abnormal code = 53217-5) [facility] CenterAlkaline [id number] 15:21:24 Test Item Value Reference Range Interpretation Comments Alk Phos (test code 102 U/L 35-104 Testing Performed at B = 3268-6) Lab Np [facility], [address], [place] [address] [facility] CenterAlbumin [id number] 15:21:23 Test Item Value Reference Range Interpretation Comments Albumin Lvl (test code 4.3 See_Comment Testi ng Performed at [facility] = 1751-7) Lab [facility], [address], [place] [address] [Automated mess age] The system which ge nerated this result tra nsmitted reference range : 3.5 - 5.2 gm/dL. The refe rence range was not used to interpret this result as normal/abnormal . [facility] CenterAspartate Aminotransferase 2022-07-02 15:21:22 Test Item Value Reference Range Interpretation Comments AST (test code = 24 U/L <=32 Testing Per formed at [facility] 1920-8) Lab Np [facility], [address], [place] [address] [facility] CenterALT2022-12-12 15:21:21 Test Item Value Reference Range Interpretation Comments ALT (test code = 24 U/L <=33 Testing Per formed at [facility] 1742-6) Lab Np [facility], [address], [place] [address] [facility].Serum [id number] 15:21:19 Test Item Value Reference Range Interpretation Comments Creatinine (test code = 1.06 mg/dL 0.51-0.95 H Test ing Performed 2160-0) at [facility] Lab Np [facility], [address], [place], [place] [address] Lab Interpretation (test Abnormal code = 31120-7) [facility] CenterBUN2022-12-12 15:21:18 Test Item Value Reference Range Interpretation Comments BUN (test code = 3094-0) 24 mg/dL 6-23 H Hope ting Performed at [facility] Lab Ambulat ory Care [facility], [address], [place] [address] Lab Interpretation (test Abnormal code = 48081-5) [facility] CenterGlucose [id number] 15:21:17 Test Item Value Reference Range Interpretation Comments Glucose Level (test code 105 mg/dL 70-99 H Eff ective 02/15/16, = 2345-7) the glucose reference inter vals have been updat ed based on Americ an Diabetes Associ ation guidelines (Standards of Medical Care in Diabetes 2016. Diabetes Care 2 016; 39: S13-S22).Fa sting blood glucose:Normal: 70-99 mg/dLImpa ired fasting glucose (increased risk for diabetes or pre-diabetes): 100-125 mg/dLDiabetes mellitus: >/=12 6 mg/dL Random bl ood glucose:Normal: 70-199 mg/dLNot e: Random glucose >100 mg/dL is associ ated with increased risk for diabetes Te sting Performed at [facility] Lab Np [facility], [address], [place], [place] [address] Lab Interpretation (test Abnormal code = 59772-2) [facility] CenterDifferential2022-12-12 14:58:09 Test Item Value Reference Range Interpretation Comments Neutrophil % (test code 53.1 % 42.0-66.0 As p art of = 770-8) Differential performed at [facility] Lab Np [facility], [address], [place] [address] Lymphocyte % (test code 30.3 % 24.0-44.0 = 736-9) Monocyte % (test code = 11.9 % 2.0-7.0 H 5905-5) Eosinophil % (test code 3.2 % 1.0-4.0 = 713-8) Basophil % (test code = 1.0 % 0.0-1.0 706-2) IGRE % (test code = 0.5 % 0.0-0.4 H IGRE % c ount includes 19340-6) Metamyelocytes, Myelocytes, and Promyelocytes. As part of Differe ntial performed at [facility] Lab Np [facility], [address], [place] [address] Neutrophil Abs (test 4.43 K/uL 1.70-7.30 code = 751-8) Lymphocyte Abs (test 2.53 K/uL 1.00-4.80 code = 731-0) Monocyte Abs (test code 0.99 K/uL 0.08-0.70 H = 742-7) Eosinophil Abs (test 0.27 K/uL 0.04-0.40 code = 711-2) Basophil Abs (test code 0.08 K/uL 0.00-0.10 = 704-7) IG Abs (test code = 0.04 K/uL 0.00-0.04 55307-6) Lab Interpretation Abnormal (test code = 45091-6) [facility].[id number] 14:57:59 Test Item Value Reference Range Interpretation Comments WBC (test code = 8.3 K/uL 4.0-11.0 6690-2) RBC (test code = 789-8) 4.87 See_Comment [Au tomated message] The system [employer] generated this result transmitted ref erence range: 4.00 - 5 .50 M/uL. The refer ence range was not u sed to interpret this result as normal/abnor mal. Hgb (test code = 718-7) 13.8 See_Comment As p art of CBC or as an individual orderable testi ng performed at [facility] Lab Np [facility], [address], [place] [address] [Automate d message] The sy stem which generated this result transmit karen reference range : 12.0 - 16.0 gm/dL. T he reference range was not used to int erpret this result as normal/abnormal . Hct (test code = 43.5 % 37.0-47.0 As part of CBC or as 4544-3) an individual orderable testi ng performed at [facility] Np Bldg, [address], [place] [address] MCV (test code = 787-2) 89 fL 82-98 MCH (test code = 785-6) 28.3 pg 27.0-31.0 MCHC (test code = 31.7 See_Comment [Automate d message] 786-4) The system whic h generated this result transmitted ref erence range: 31.0 - 3 6.0 gm/dL. The refe rence range was not u sed to interpret this result as normal/abnor mal. RDW-SD (test code = 49.6 fL 35.1-46.3 H 71480-9) RDW-CV (test code = 15.1 % 12.0-15.5 788-0) Platelet count (test 364 K/uL 140-440 As part of CBC or as code = 777-3) an individual orderable testi ng performed at [facility], [address], [address], [place] [address] MPV (test code = 10.8 fL 4.0-10.4 H 58825-6) INRBC (test code = 0.0 % <=0.0 The INRBC (instrument 10865-4) NRBC) value ref lects the enumeration of nucleated red b lood cells contained in a 200uL sampleof whole blood analyzed by the instrument. Thi s value maydiffer from the NRBC value repo rted in a manual differential,wh ich is based on a 100 cell differential. A s part of CBC testing performed at [facility] [address], [address], [place] [address] Lab Interpretation Abnormal (test code = 11931-7) [facility] [id number] 13:48:26 Test Item Value Reference Range Interpretation Comments TSH (test code 3.44 See_Comment [Automated m essage] = 33587-7) The system Attributor h generated this result transmit karen reference range : 0.27 - 4.20 mcunit/mL. The reference range was not used to interpret this result as normal/abnormal . AVI (test code Please coordinate = AVI) [id number]:48[facility]25 Test Item Value Reference Range Interpretation Comments T4 Free (test code = 1.43 ng/dL 0.93-1.70 3024-7) AVI (test code = Please coordinate for one AVI) day - 04[facility]11 [facility] [id number] 11:53:26 Test Item Value Reference Range Interpretation Comments POC Crea (test 1.0 mg/dL 0.6-1.3 Medications, code = 74087-9) especially hydroxyurea or supplements, carlos ch as ascorbate, can interfere with test results causing a falsely and significantly h igher result than exp ected. If a problem is suspected with a patient's resul t, a sample should b e sent to the laborato for confirmatory te sting. Method descript ion: The i-STAT is a n analyzer used f or in vitro quantific ation of various anal ytes in whole blood. The device uses a s alfredo disposable cart ridge which contains microfabricated sensors, a calibration kay ution, fluidics system , and a waste chamber . Each test cartridge contains chemic ally sensitive biose nsors on a Iddiction ip that are config ured to perform spec ific tests. The microfabricated sensors measure analyte concent ration by an electroc emical assay. POC eGFR-AA (test 70 See_Comment Normal eGF R >= 60 code = 85020-6) mL/min/1.73 m2 The eGFR is calcula karen using the CKD-E PI equation. The e GFR declines with a ge. eGFR <60 mL/min /1.73 m2 is considere d as "decreased" Thi s equation should only be used for pat ients 18 and older. According to National Kidney Foundation's Ki dney Disease Outcome Quality Initiat roderick (KDOQI) classification and 2012 Kidney Dis ease Improving Globa l Outcomes (KDIGO ) Clinical Practi ce Guideline, the stage of CKD should b e categorized bas ed on estimated GFR. Stage Description GFR mL/min/1.73 m21 Kidney damage w ith normal or high GFR >=902 Kidney da mage with mild decre ase in GFR 60-893a Mil d to moderate decrea se in GFR 45-593b Mod erate to severe decre ase in GFR 30-444 Amina re decrease in GFR 15-295 Kidney f ailure <15 (or dialysi s) [Automated mess age] The system Thotz generated this result transmitted ref erence range: >=60 mL/min/1.73 m2. The reference range was not used to int erpret this result as normal/abnormal . POC eGFR-PRADIP 61 See_Comment Normal eGFR >= 60 (test code = mL/min/1.73 m2 The 16505-6) eGFR is calcula karen using the CKD-E PI equation. The e GFR declines with a ge. eGFR <60 mL/min /1.73 m2 is considere d as "decreased" Thi s equation should only be used for pat ients 18 and older. According to th e National Kidney Foundation's Ki dney Disease Outcome Quality Initiat roderick (KDOQI) classification and 2012 Kidney Dis ease Improving Globa l Outcomes (KDIGO ) Clinical Practi ce Guideline, the stage of CKD should b e categorized bas ed on estimated GFR. Stage Description GFR mL/min/1.73 m21 Kidney damage w ith normal or high GFR >=902 Kidney da mage with mild decre ase in GFR 60-893a Mil d to moderate decrea se in GFR 45-593b Mod erate to severe decre ase in GFR 30-444 Amina re decrease in GFR 15-295 Kidney f ailure <15 (or dialysi s) [Automated mess age] The system Thotz generated this result transmitted ref erence range: >=60 mL/min/1.73 m2. The reference range was not used to int erpret this result as normal/abnormal . POC Clean Dev Yes (test code = 6672) Performing Lab Radiology OP CTR Radiology OP CTR (test code = [facility] [address]) [facility], [address], [place], [place] [address]; Point of Care L ab Director: Lori parmar MD [facility] HammondMARY ANN [id number] 13:26:00 Test Item Value Reference Interpretation Comments Range TROPONIN I (test 0.005 ng/mL See_Comment [Automated code = 1967268310) message] The system which generated this result transmitted reference range : <=0.034. The reference range was not used to interpret this result as normal/abnormal . AVI (test code = Reference (Normal) AVI) Range (defined by the 99th percentile reference limit): <= 0.034 ng/mL Note: Cardiac troponin begins to rise 3-4 hours after the onset of ischemia. Repeat in 4-6 hours if the sample was drawn within 3-4 hours of the onset of the symptom and found normal. Diagnosis of myocardial injury is made with acute changes in cTn concentrations with at least one serial sample above the 99th percentile upper reference limit (URL), taken together with the patient's clinical presentation. Biotin has been reported to cause a negative bias, interpret results relative to patient's use of biotin. Lab Interpretation Normal (test code = 65041-2) [facility]. METABOLIC PANEL [id number] 13:15:42 Test Item Value Reference Range Interpretation Comments NA (test code = 137 mmol/L 135-145 0866337574) K (test code = 3.6 mmol/L 3.5-5.0 7919875081) CL (test code = 105 mmol/L 98-108 3546341286) CO2 TOTAL (test code = 29 mmol/L 23-31 6687164147) AGAP (test code = 2-16 8744238965) BUN (test code = 18 mg/dL 7-23 7429224051) GLUCOSE (test code = 112 mg/dL 70-110 H 2181832724) CREATININE (test code = 0.81 mg/dL 0.50-1.04 1195046201) TOTAL BILI (test code = 0.7 mg/dL 0.1-1.3 0559233676) CALCIUM (test code = 9.1 mg/dL 8.6-10.6 6475608668) T PROTEIN (test code = 7.4 g/dL 6.3-8.2 0946835896) ALBUMIN (test code = 4.1 g/dL 3.5-5.0 7540156284) ALK PHOS (test code = 72 U/L 34-122 5890904869) ALTv (test code = 32 U/L 5-35 1742-6) AST(SGOT) (test code = 32 U/L 13-40 5906178245) eGFR (test code = mL/min/1.73m2 9200533197) AVI (test code = AVI) Association of Glomerular Filtration Rate (GFR) and Staging of Kidney Disease* + --+ --+ ------+| GFR (mL/min/1.73 m2) ?| With Kidney Damage ?| ?Without Kidney Damage+ --------+ --------+ +| ?>90 ?| ?Stage one ?| ? Normal ?+ ---+ ---+ -------+| ?60-89 ?| ?Stage two ?| ? Decreased GFR ? + --+ --+ ------+| ?30-59 ?| ?Stage three ?| ? Stage three ? + --+ --+ ------+| ?15-29 ?| ?Stage four ? | ? Stage four ?+ ---+ ---+ -------+| ?<15 (or dialysis) ? ?| ?Stage five ? | ? Stage five ?+ ---+ ---+ -------+ *Each stage assumes the associated GFR level has been in effect for at least three months. ?Stages 1 to 5, with or without kidney disease, indicate chronic kidney disease. Notes: Determination of stages one and two (with eGFR >59mL/min/1.73 m2) requires estimation of kidney damage for at least three months as defined by structural or functional abnormalities of the kidney, manifested by either:Pathological abnormalities or Markers of kidney damage (including abnormalities in the composition of the blood or urine or abnormalities in imaging tests). Lab Interpretation Abnormal (test code = 94217-1) [facility] WITH [id number] 12:45:59 Test Item Value Reference Range Interpretation Comments WBC (test code = See_Comment [Automated 7090-2) message] The sy stem which generated this result transmitted reference range : 4.30 - 11.10 10*3/?L. The reference range was not used to interpret this result as normal/abnormal . RBC (test code = See_Comment [Automated 789-8) message] The sy stem which generated this result transmitted reference range : 3.93 - 5.25 10*6/?L. The reference range was not used to interpret this result as normal/abnormal . HGB (test code = 13.6 g/dL 11.6-15.0 718-7) HCT (test code = 41.0 % 35.7-45.2 4544-3) MCV (test code = 91.3 fL 80.6-95.5 787-2) MCH (test code = 30.3 pg 25.9-32.8 785-6) MCHC (test code = 33.2 g/dL 31.6-35.1 786-4) RDW-SD (test code = 45.2 fL 39.0-49.9 26627-7) RDW-CV (test code = 13.4 % 12.0-15.5 788-0) PLT (test code = See_Comment [Automated 777-3) message] The sy stem which generated this result transmitted reference range : 166 - 358 10*3/ ?L. The reference r mony was not used to interpret this result as normal/abnormal . MPV (test code = 11.0 fL 9.5-12.9 17190-0) NRBC/100 WBC (test See_Comment [Automat ed code = 5471922811) message] The system which generated this result transmitted reference range : 0.0 - 10.0 /100 WBCs. The refer ence range was not u sed to interpret th is result as normal/abnormal . NRBC x10^3 (test code <0.01 See_Comment [Auto mated = 1390931764) message] The s ystem which generated this result transmitted reference range : 10*3/?L. The reference range was not used to interpret this result as normal/abnormal . GRAN MAT (NEUT) % 71.2 % (test code = 770-8) IMM GRAN % (test code 1.00 % = 4434024030) LYMPH % (test code = 15.5 % 736-9) MONO % (test code = 9.4 % 5905-5) EOS % (test code = 2.3 % 713-8) BASO % (test code = 0.6 % 706-2) GRAN MAT x10^3(ANC) 5.95 10*3/uL 1.88-7.09 (test code = 9895316595) IMM GRAN x10^3 (test 0.08 10*3/uL 0.00-0.06 H code = 1958327981) LYMPH x10^3 (test code 1.29 10*3/uL 1.32-3.29 L = 731-0) MONO x10^3 (test code 0.78 10*3/uL 0.33-0.92 = 742-7) EOS x10^3 (test code = 0.19 10*3/uL 0.03-0.39 711-2) BASO x10^3 (test code 0.05 10*3/uL 0.01-0.07 = 704-7) Lab Interpretation Abnormal (test code = 34820-9) [facility]
--- NOTE | 2023-03-13 02:46 | P.HP ---
Certification for Inpatient Patient admitted to: Observation With expected LOS: <2 Midnights Patient will require the following post-hospital care: None Practitioner: I am a practitioner with admitting privileges, knowledge of patient current condition, hospital course, and medical plan of care. Services: Services provided to patient in accordance with Admission requirements found in Title 42 Section 412.3 of the Code of Federal Regulations Patient History Date of Service: 03/13/23 Reason for admission: Food bolus obstruction History of Present Illness: 62-year-old female with a past medical history of hypertension, arthritis presents to the emergency room with a food bolus lodged in her throat. She reports a "piece of chicken got stuck in my throat since yesterday." She reports trying to take p.o. intake unsuccessful, she reports trying hot liquids, carbonated beverages, ice cream. She denies shortness of breath, drooling, cough, nausea vomiting abdominal pain, vital signs are stable, hypertensive 182/77, heart rate 64, respirations 18, O2 sats 99% on room air, plan to admit for esophageal obstruction, plan to consult GI for EGD in the a.m. Laboratory evaluation CBC unremarkable CMP mild hypokalemia elevated chloride at 109 BUN acute kidney injury 21 creatinine elevated at 1.06 estimated GFR 59, EKG demonstrates normal sinus rhythm at 60 bpm with normal intervals, normal QRS, normal axis, normal ST/T-segment's without evidence of acute ischemia.. Allergies No Known Allergies Allergy (Verified 11/15/15 21:21) Home Medications: Cyclobenzaprine [Flexeril*] 10 mg PO BEDTIME 03/20/17 Naproxen/Esomeprazole Mag [Vimovo Dr 500-20 mg Tablet] 1 each PO Q12H 03/20/17 hydroCHLOROthiazide [Hydrochlorothiazide] 25 mg PO DAILY 03/20/17 lisinopriL [Prinivil*] 20 mg PO BID 03/20/17 Ciprofloxacin HCl [Cipro 500 MG Tablet] 500 mg PO BID #20 tab 03/21/17 metroNIDAZOLE [Flagyl] 500 mg PO Q8H #30 tablet 03/21/17 - Past Medical/Surgical History Diabetic: No -: HTN -: Arthritis -: Right knee surgery -: Bilateral tubal ligation Psychosocial/ Personal History: The patient is a . She has 2 children. - Family History Father -: Heart disease, Hypertension, Lung disease, Cancer Notes: CHF, COPD Mother -: Hypertension Brother -: Hypertension Sister -: Lung disease, Cancer - Social History Alcohol use: No CD- Drugs: No Caffeine use: No Review of Systems 10-point ROS is otherwise unremarkable Physical Examination - Physical Exam General: Alert, In no apparent distress, Oriented x3 HEENT: Atraumatic, Normocephalic, PERRLA Neck: Supple, 2+ carotid pulse no bruit, JVD not distended Cardiovascular: No edema, Normal pulses, Regular rate/rhythm Gastrointestinal: Normal bowel sounds, Soft and benign Musculoskeletal: No clubbing, No swelling Integumentary: No rashes, No breakdown Neurological: Normal speech, Normal strength at 5/5 x4 extr, Normal tone Assessment and Plan - Plan Assessment and plan Food bolus impaction Acute on chronic kidney injury unknown baseline Hypertension uncontrolled DVT SCDs Assessment and plan Food bolus impaction GI consult for EGD in the a.m. Keep n.p.o. Acute on chronic kidney injury unknown baseline Trend kidney function Avoid nephrotoxic medication CMP mild hypokalemia elevated chloride at 109 BUN acute kidney injury 21 creatinine elevated at 1.06 estimated GFR 59, Hypertension As needed antihypertensives hypertensive 182/77, heart rate 64, respirations 18, O2 sats 99% on room air, normal sinus rhythm at 60 bpm with normal intervals, normal QRS, normal axis, normal ST/T-segment's without evidence of acute ischemia.. Diet n.p.o. Full code DVT SCDs Discharge Plan: Home Plan to discharge in: 24 Hours - Advance Directives Does patient have a Living Will: No Does patient have a Durable POA for Healthcare: No - Code Status/Comfort Care Code Status: Full Code Physician Review: Patient Assessed, Agree with Above Assessment and Plan Critical Care: No Time Spent Managing Pts Care (In Minutes): 50
[2023-03-13] MEDS ORDERED: ONDANSETRON 4 MG/2 ML VIAL ONE (02:48)
[2023-03-13] MEDS ORDERED: GLUCAGON 1 MG/VIAL ONE (02:49)
--- NOTE | 2023-03-13 03:14 | ER ---
Nurse's Notes [facility] Name: Natacha Ríos Age: 62 yrs Sex: Female : 1960 Arrival Date: 03/13/2023 Time: 02:13 Bed 13 Private MD: Diagnosis: Foreign body impaction in the esophagus. Presentation: 03/13 02:19 Chief complaint: Patient states: a piece of chicken stuck in throat,onset yesterday. pf1 Patient stated can not hold down water. 02:19 Coronavirus screen: Vaccine status: Patient reports being unvaccinated. Client denies pf1 travel out of the [place] in the last 14 days. At this time, the client does not indicate any symptoms associated with coronavirus-19. Ebola Screen: Patient negative for fever greater than or equal to 101.5 degrees Fahrenheit, and additional compatible Ebola Virus Disease symptoms. Initial Sepsis Screen: Does the patient meet any 2 criteria? No. Patient's initial sepsis screen is negative. Does the patient have a suspected source of infection? No. Patient's initial sepsis screen is negative. Risk Assessment: Do you want to hurt yourself or someone else? Patient reports no desire to harm self or others. 02:19 Method Of Arrival: Ambulatory pf1 02:19 Acuity: KENDRA 3 pf1 02:41 Onset of symptoms was March 12, 2023. lg3 Historical: - Allergies: 06:20 No Known Allergies; lg3 - Home Meds: 06:20 Lodine 500 mg Oral [Active]; levothyroxine 75 mcg capsule [Active]; amlodipine 5 mg lg3 tablet [Active]; omeprazole 20 mg Oral Tablet,disintegrating,delayed release [Active]; lisinopril 20 mg Oral tablet [Active]; hydrochlorothiazide 25 mg Oral tablet [Active]; - PMHx: 02:35 Arthritis; Hypertension; skin cancer; pf1 06:20 Hypertensive disorder; Hypothyroidism; lg3 - PSHx: 02:35 skin cancer removed from nose with skin flip surgery; pf1 - Immunization history:: Adult Immunizations up to date, Client reports having NOT received the Covid vaccine. Last tetanus immunization: > 10 years ago Flu vaccine is not up to date. - Social history:: Smoking status: Patient denies any tobacco usage or history of. Patient uses alcohol, occasionally. Patient/guardian denies using street drugs. Screenin:30 [facility] ED Fall Risk Assessment (Adult) History of falling in the last 3 months, lg3 including since admission No falls in past 3 months (0 pts). Abuse screen: Denies threats or abuse. Denies injuries from another. Nutritional screening: No deficits noted. Tuberculosis screening: No symptoms or risk factors identified. Assessment: 02:30 General: Appears in no apparent distress. comfortable, Behavior is calm, cooperative. lg3 Pain: Complains of pain in throat Pain does not radiate. Pain currently is 2 out of 10 on a pain scale. Neuro: No deficits noted. Clark Agitation-Sedation Scale (RASS): 0 - Alert and Calm Level of Consciousness is awake, alert, obeys commands, Oriented to person, place, time, situation. Cardiovascular: No deficits noted. Denies chest pain, shortness of breath, Capillary refill < 3 seconds Clubbing of nail beds is absent JVD is absent Patient's skin is warm and dry. Respiratory: No deficits noted. Reports cough that is hacking, persistent Airway is patent Respiratory effort is even, unlabored, Respiratory pattern is regular, symmetrical, Breath sounds are clear bilaterally. GI: No deficits noted. Abdomen is round non-distended, Reports nausea. : No deficits noted. No signs and/or symptoms were reported regarding the genitourinary system. EENT: No deficits noted. No signs and/or symptoms were reported regarding the EENT system. Derm: No deficits noted. No signs and/or symptoms reported regarding the dermatologic system. Skin is intact, is healthy with good turgor, Skin is dry, Skin is normal, Skin temperature is warm. Musculoskeletal: No deficits noted. No signs and/or symptoms reported regarding the musculoskeletal system. Circulation, motion, and sensation intact. Range of motion: intact in all extremities. 03:55 General: pt unable to tolerate PO challenge at this time. provider notified.. lg3 06:20 Reassessment: Patient appears in no apparent distress at this time. No changes from lg3 previously documented assessment. Patient and/or family updated on plan of care and expected duration. Pain level reassessed. Patient is alert, oriented x 3, equal unlabored respirations, skin warm/dry/pink. 07:00 Reassessment: please see [employer] for further charting. kc6 Vital Signs: 02:19 BP 182 / 77; Pulse 64; Resp 18; Temp 97.9; Pulse Ox 99% on R/A; Weight 106.59 kg; pf1 Height 5 ft. 5 in. ; Pain 3/10; 03:14 BP 192 / 86; Pulse 62; Resp 18 S; Pulse Ox 96% on R/A; lg3 04:09 BP 185 / 97; Pulse 68; Resp 18 S; Pulse Ox 97% on R/A; lg3 06:16 BP 156 / 94; Pulse 53; Resp 17 S; Pulse Ox 100% on R/A; rv1 02:19 Body Mass Index 39.11 (106.59 kg, 165.1 cm) pf1 02:19 Pain Scale: Adult pf1 ED Course: 02:16 Patient arrived in ED. jj6 02:19 Romulo Lugo MD is Attending Physician. sp3 02:30 Patient maintains SpO2 saturation greater than 95% on room air. lg3 02:30 Patient has correct armband on for positive identification. Placed in gown. Bed in low lg3 position. Call light in reach. Side rails up X 1. Client placed on continuous cardiac and pulse oximetry monitoring. NIBP monitoring applied. clinical research monitor on. Door closed. Noise minimized. Warm blanket given. 02:35 Triage completed. pf1 02:41 Anabell Patiño, RN is Primary Nurse. lg3 03:00 Inserted saline lock: 22 gauge in right antecubital area, using aseptic technique. lg3 Blood collected. 03:09 CBC with Diff Sent. lg3 03:09 CMP Sent. lg3 03:09 Lipase Sent. lg3 03:13 Tony Heredia is Hospitalizing Provider. sp3 06:19 No provider procedures requiring assistance completed. Patient admitted, IV remains in lg3 place. intact, No redness/swelling at site. 06:20 Arm band placed on right wrist. lg3 07:00 Report received from Anabell Coronel RN. kc6 Administered Medications: 03:00 Drug: GlucaGen IM 1 mg Route: IM; Site: right deltoid; lg3 04:02 Follow up: Response: No adverse reaction; No change in condition lg3 03:00 Drug: Ondansetron IVP 4 mg Route: IVP; Site: right antecubital; lg3 04:02 Follow up: Response: No adverse reaction; No change in condition lg3 Medication: 06:20 VIS not applicable for this client. lg3 Outcome: 03:14 Decision to Hospitalize by Provider. sp3 06:20 Admitted to ER Hold. Please see [facility] for further documentation. lg3 06:20 Condition: stable 06:20 Instructed on the need for admit, Demonstrated understanding of instructions. 09:30 Patient left the ED. kc6 Signatures: Anabell Patiño RN RN lg3 Romulo Lugo MD MD sp3 Emi Sherwood6 Justa Williamson RN RN kc6 Megan Moncada RN RN pf1 Terra Ovalle rv1 Corrections: (The following items were deleted from the chart) 06:26 06:20 Home Meds: Lodine 500 mg Oral 1 tab; lg3 lg3
--- NOTE | 2023-03-13 03:14 | EDPHYS ---
Physician Documentation [facility] Name: Natacha Ríos Age: 62 yrs Sex: Female : 1960 Arrival Date: 03/13/2023 Time: 02:13 Bed 13 Private MD: MEREDITH Physician Romulo Lugo HPI: 03/13 02:35 This 62 yrs old Female presents to ER via Unassigned with complaints of Foreign Body In sp3 Throat. 02:35 62-year-old female with history of hypertension presents with chief complaint "I think sp3 I have a piece of chicken stuck in my throat" since yesterday. Patient states that she cannot swallow her spit for more than about 30 minutes before having to "bring it back up. She has tried hot liquids, carbonated liquids, ice cream, but none of it goes down past the upper chest. She states she still "feels the piece of chicken in her throat". No prior history of esophageal impaction. No history of gastritis or GERD or prior Schatzki's ring or other similar process. She denies shortness of breath, substernal chest pain, syncope, neurological symptoms, or any other concerning findings on ROS at this time.. Historical: - Allergies: 06:20 No Known Allergies; lg3 - Home Meds: 06:20 Lodine 500 mg Oral [Active]; levothyroxine 75 mcg capsule [Active]; amlodipine 5 mg lg3 tablet [Active]; omeprazole 20 mg Oral Tablet,disintegrating,delayed release [Active]; lisinopril 20 mg Oral tablet [Active]; hydrochlorothiazide 25 mg Oral tablet [Active]; - PMHx: 02:35 Arthritis; Hypertension; skin cancer; pf1 06:20 Hypertensive disorder; Hypothyroidism; lg3 - PSHx: 02:35 skin cancer removed from nose with skin flip surgery; pf1 - Immunization history:: Adult Immunizations up to date, Client reports having NOT received the Covid vaccine. Last tetanus immunization: > 10 years ago Flu vaccine is not up to date. - Social history:: Smoking status: Patient denies any tobacco usage or history of. Patient uses alcohol, occasionally. Patient/guardian denies using street drugs. ROS: 02:36 Constitutional: Negative for fever, chills, and weight loss, Eyes: Negative for injury, sp3 pain, redness, and discharge, ENT: Negative for injury, pain, and discharge, Neck: Negative for injury, pain, and swelling, Cardiovascular: Negative for chest pain, palpitations, and edema, Respiratory: Negative for shortness of breath, cough, wheezing, and pleuritic chest pain, Back: Negative for injury and pain, MS/Extremity: Negative for injury and deformity, Skin: Negative for injury, rash, and discoloration, Neuro: Negative for headache, weakness, numbness, tingling, and seizure, Psych: Negative for depression, anxiety, suicide ideation, homicidal ideation, and hallucinations, Allergy/Immunology: Negative for hives, rash, and allergies, Endocrine: Negative for neck swelling, polydipsia, polyuria, polyphagia, and marked weight changes. 02:36 All other systems are negative. Exam: 02:37 Constitutional: This is a well developed, well nourished patient who is awake, alert, sp3 and in no acute distress. Head/Face: Normocephalic, atraumatic. Eyes: Pupils equal round and reactive to light, extra-ocular motions intact. Lids and lashes normal. Conjunctiva and sclera are non-icteric and not injected. Cornea within normal limits. Periorbital areas with no swelling, redness, or edema. Neck: Trachea midline, no thyromegaly or masses palpated, and no cervical lymphadenopathy. Supple, full range of motion without nuchal rigidity, or vertebral point tenderness. No Meningismus. Chest/axilla: Normal chest wall appearance and motion. Nontender with no deformity. No lesions are appreciated. Cardiovascular: Regular rate and rhythm with a normal S1 and S2. No gallops, murmurs, or rubs. Normal PMI, no JVD. No pulse deficits. Respiratory: Lungs have equal breath sounds bilaterally, clear to auscultation and percussion. No rales, rhonchi or wheezes noted. No increased work of breathing, no retractions or nasal flaring. Abdomen/GI: Soft, non-tender, with normal bowel sounds. No distension or tympany. No guarding or rebound. No evidence of tenderness throughout. Back: No spinal tenderness. No costovertebral tenderness. Full range of motion. Skin: Warm, dry with normal turgor. Normal color with no rashes, no lesions, and no evidence of cellulitis. MS/ Extremity: Pulses equal, no cyanosis. Neurovascular intact. Full, normal range of motion. Neuro: Awake and alert, GCS 15, oriented to person, place, time, and situation. Cranial nerves II-XII grossly intact. Motor strength 5/5 in all extremities. Sensory grossly intact. Cerebellar exam normal. Normal gait. Vital Signs: 02:19 BP 182 / 77; Pulse 64; Resp 18; Temp 97.9; Pulse Ox 99% on R/A; Weight 106.59 kg; pf1 Height 5 ft. 5 in. ; Pain 3/10; 03:14 BP 192 / 86; Pulse 62; Resp 18 S; Pulse Ox 96% on R/A; lg3 04:09 BP 185 / 97; Pulse 68; Resp 18 S; Pulse Ox 97% on R/A; lg3 06:16 BP 156 / 94; Pulse 53; Resp 17 S; Pulse Ox 100% on R/A; rv1 02:19 Body Mass Index 39.11 (106.59 kg, 165.1 cm) pf1 02:19 Pain Scale: Adult pf1 MDM: 02:22 Patient medically screened. sp3 02:37 Data reviewed: vital signs, nurses notes, lab test result(s), EKG, radiologic studies. sp3 ED course: 63-year-old female with probable foreign body esophageal impaction with food bolus. We will try glucagon IM to see if that helps. Laboratory values are pending including EKG and troponin. Patient is unable to currently swallow more than a very small amount of p.o. intake before the undigested amount comes right back up. GI has been consulted and voicemail left. Will admit to hospitalist and have GI consult for the floor.. 03:11 ED course: Glucagon with no effect. We will keep patient n.p.o. and have GI see her in sp3 the morning. Patient to be admitted under Dr. heredia.. ED course: EKG demonstrates normal sinus rhythm at 60 bpm with normal intervals, normal QRS, normal axis, normal ST/T-segment's without evidence of acute ischemia.. 03/13 02:30 Order name: CBC with Diff; Complete Time: 04:13 sp3 03/13 02:30 Order name: CMP; Complete Time: 04:13 sp3 03/13 02:30 Order name: Lipase; Complete Time: 04:13 sp3 03/13 02:30 Order name: Troponin High Sensitivity; Complete Time: 04:13 sp3 03/13 04:57 Order name: Urinalysis w/ reflexes EDMS 03/13 04:57 Order name: Urinalysis w/ reflexes EDMS 03/13 04:57 Order name: Basic Metabolic Panel EDMS 03/13 04:57 Order name: Basic Metabolic Panel EDMS 03/13 04:57 Order name: CBC with Automated Diff EDMS 03/13 04:57 Order name: CBC with Automated Diff EDMS 03/13 04:57 Order name: Magnesium EDMS 03/13 04:57 Order name: Magnesium EDMS 03/13 04:11 Order name: CXR XRAY sp3 03/13 02:30 Order name: EKG; Complete Time: 02:30 sp3 03/13 04:55 Order name: CONS Physician Consult EDMS 03/13 04:57 Order name: NPO EDMS 03/13 02:30 Order name: IV Saline Lock; Complete Time: 03:09 sp3 03/13 02:30 Order name: Labs collected and sent; Complete Time: 03:09 sp3 03/13 02:30 Order name: EKG - Nurse/Tech; Complete Time: 03:00 sp3 03/13 02:30 Order name: PO challenge; Complete Time: 03:54 sp3 Administered Medications: 03:00 Drug: GlucaGen IM 1 mg Route: IM; Site: right deltoid; lg3 04:02 Follow up: Response: No adverse reaction; No change in condition lg3 03:00 Drug: Ondansetron IVP 4 mg Route: IVP; Site: right antecubital; lg3 04:02 Follow up: Response: No adverse reaction; No change in condition lg3 Disposition Summary: 03/13/23 03:14 Hospitalization Ordered Hospitalization Status: Observation sp3 Provider: Tony Heredia sp3 Condition: Stable sp3 Problem: new sp3 Symptoms: are unchanged sp3 Bed/Room Type: Standard sp3 Location: [facility] ER HOLD(03/13/23 05:32) cg Room Assignment: ERHOLD-(03/13/23 05:32) cg Diagnosis - Foreign body impaction in the esophagus. sp3 Forms: - Medication Reconciliation Form sp3 - SBAR form sp3 - Leadership Thank You Letter sp3 Signatures: Dispatcher [employer] Orly Jones, RN RN cg Anabell Patiño RN RN lg3 Romulo Lugo MD MD sp3 Megan Moncada RN RN pf1 Corrections: (The following items were deleted from the chart) 05:32 03:14 Telemetry/MedSurg (observation) sp3 05:32 03:14 sp3 06:26 06:20 Home Meds: Lodine 500 mg Oral 1 tab; lg3 lg3
[2023-03-13 03:35] LABS: Absolute Lymphocytes (CBC) 2.3 K/uL (0.7-4.9); Hematocrit 44.5 % (36.0-45.0); Lymphocytes % 21.3 % (15.3-44.8); MCV 90.8 fL (80-100); MPV 9.3 fL (7.6-11.3); Platelets 319 thou/uL (152-406)
[2023-03-13 03:58] LABS: Albumin 4.1 g/dL (3.4-5.0); Bilirubin Total 0.7 mg/dL (0.2-1.0); Protein, Total 9.2 g/dL (6.4-8.2); Troponin High Sensitivity 11.8 pg/mL (<58.9)
[2023-03-13] MEDS ORDERED: ONDANSETRON 4 MG/2 ML VIAL IV PRN (04:55)
[2023-03-13] MEDS ORDERED: METOPROLOL TARTRATE 5 MG/5 ML INJ IV STA (05:00)
[2023-03-13 06:38] VITALS: BMI 38.9
[2023-03-13] MEDS ORDERED: Ringers Lactate 500 ML IV ONE (09:40)
--- NOTE | 2023-03-13 10:32 | RAD REPORT ---
EXAM DESCRIPTION: RAD - Chest Single View - 03/13/2023 5:13 am CLINICAL HISTORY: The patient is 62 years old and is Female; Esophageal FB [facility] MAIN TECHNIQUE: Frontal view of the chest. COMPARISON: No relevant prior studies available. FINDINGS: LUNGS: No discrete focal consolidation. PLEURAL SPACE: No pleural effusion. No pneumothorax. HEART: See below. MEDIASTINUM: Cardiomediastinal silhouette within normal limits for patient rotation, patient body h abitus, and portable technique. BONES/JOINTS: Multilevel spondylosis. SOFT TISSUES: Unremarkable as visualized. No radiopaque foreign body identified. IMPRESSION: No radiopaque foreign body identified. No definite acute cardiopulmonary abnormality. Electronically signed by: Ricardo Grey MD 03/13/2023 5:29 AM CDT Due to temporary technical issues with the PACS/Fluency reporting system, reports are being signed by the in house radiologists without review as a courtesy to insure prompt reporting. The interpreting radiologist is fully responsible for the content of the report.
[2023-03-13] MEDS ORDERED: LIDOCAINE 1% MPF 5 ML VIAL ONE (11:38)
[2023-03-13] MEDS ORDERED: propofoL 200 MG/20 ML VIAL IV ONE ×2 (11:38)
--- NOTE | 2023-03-13 12:56 | EKG ---
Test Date: 2023-03-13 Test Time: 02:58:08 Radiologic Technology Program Director: RV MEASUREMENT RESULTS: Intervals: Rate: 57 GA: 170 QRSD: 98 QT: 452 QTc: 439 [place]: P: 35 GA: 170 QRS: 13 T: 76 INTERPRETIVE STATEMENTS: Sinus bradycardia Minimal voltage criteria for LVH, may be normal variant Borderline ECG Compared to ECG 03/20/2017 06:43:05 Left ventricular hypertrophy now present Sinus rhythm no longer present Myocardial infarct finding no longer present Electronically Signed On 03-13-23 12:55:28 CDT by Samm Glaser
--- NOTE | 2023-03-13 13:04 | P.DS ---
Admission Date: 03/13/23 Discharge Date: 03/13/23 Disposition: ROUTINE DISCHARGE Discharge Condition: FAIR Reason for Admission: Food bolus obstruction - Problems (1) Foreign body in esophagus Current Visit: Yes Status: Acute (2) Esophagitis determined by endoscopy Current Visit: Yes Status: Acute Brief History of Present Illness: 62-year-old female with a past medical history of hypertension, arthritis presented to the emergency room with a food bolus lodged in her esophagus. She reports a piece of chicken got stuck in her esophagus yesterday. She reported trying hot liquids, carbonated beverages, ice cream without success. She denied shortness of breath, drooling, cough, nausea vomiting abdominal pain, vital signs are stable, hypertensive 182/77, heart rate 64, respirations 18, O2 sats 99% on room air. CBC unremarkable CMP, ,hypokalemia, elevated chloride at 109 BUN acute kidney injury 21 creatinine elevated at 1.06 estimated GFR 59, EKG unremarkable. Patient was hospitalized for GI evaluation. Hospital Course: Patient placed under observation on the medical floor. Seen by GI Dr. Parsons and endoscopy done which showed foreign body in the distal esophagus along with esophagitis and stricture. Foreign body successfully removed during the endoscopy. Patient is deemed stable for discharge per Dr. Parsons. She is prescribed supplementation for hypokalemia. Vital Signs/Physical Exam: Temp Pulse Resp BP Pulse Ox 98.4 F 60 18 156/85 H 98 03/13/23 06:42 03/13/23 08:00 03/13/23 08:00 03/13/23 08:00 03/13/23 08:00 Laboratory Data at Discharge: WBC 10.90 thou/uL (4.3-10.9) 03/13/23 03:00 Hgb 15.1 g/dL (12.0-15.0) H 03/13/23 03:00 Hct 44.5 % (36.0-45.0) 03/13/23 03:00 Plt Count 319 thou/uL (152-406) 03/13/23 03:00 Sodium 141 mEq/L (136-145) 03/13/23 03:00 Potassium 3.0 mEq/L (3.5-5.1) L 03/13/23 03:00 BUN 21 mg/dL (7-18) H 03/13/23 03:00 Creatinine 1.06 mg/dL (0.55-1.02) H 03/13/23 03:00 Glucose 92 mg/dL (74-106) 03/13/23 03:00 Total Bilirubin 0.7 mg/dL (0.2-1.0) 03/13/23 03:00 AST 13 U/L (15-37) L 03/13/23 03:00 ALT 32 U/L (13-56) 03/13/23 03:00 Alkaline Phosphatase 93 U/L (45-117) 03/13/23 03:00 Lipase 30 U/L (13-75) 03/13/23 03:00 Home Medications: Amlodipine [Norvasc*] 5 mg PO DAILY 03/13/23 Etodolac [Lodine Xl] 500 mg PO DAILY 03/13/23 Levothyroxine Sodium 1 cap PO DAILY 03/13/23 Lisinopril [Zestril] 20 mg PO BID 03/13/23 Omeprazole 20 mg PO DAILY 03/13/23 Potassium Chloride [Klor-Con] 40 meq PO ONCE #2 packet 03/13/23 hydroCHLOROthiazide [Hydrochlorothiazide] 1 tab PO DAILY 03/13/23 New Medications: Potassium Chloride [Klor-Con] 40 meq PO ONCE #2 packet Diet: AHA Activity: Ad ryan Followup: Edgar Hartley MD [Primary Care Provider] - Time spent managing pt's care (in minutes): 25
[2023-03-13 13:57] VITALS: TEMP 97
[2023-03-13 14:00] VITALS: BP 128/63; O2SAT 98
--- NOTE | 2023-03-13 15:48 | CON ---
Date of Consultation: 03/13/2023 Reason For Consultation: Esophageal meat impaction with dysphagia to solids and liquids. History Of Present Illness: The patient is a 62-year-old white female with history of hypertension, arthritis, gastroesophageal reflux disease. Patient presented to the hospital after eating chicken y day from [employer] in [place] at approximately noon. Patient states since that time she has had problem swallowing solids and liquids and somewhat with saliva as well. Having to spit e very so often she reports. She states that about 3 to 4 years ago she had a similar event that laste d only a few minutes after eating chicken fried steak, but passed spontaneously. Since that time, bal crump has had recurrent reflux, indigestion for which she takes proton pump inhibitor, which I believe is Prilosec. Review of Systems: The patient denies any other complaints such as fevers, chills, night sweats, nausea, vomiting, , belching, muscle aches, joint aches, backaches, depression, anxiety, hematemesis, coffee-groun d emesis, epistaxis, melena, hematochezia, change in bowel habits, diarrhea, constipation. She state s she has lost some weight recently with dieting. Home Medications: Include Flexeril, Vimovo, hydrochlorothiazide, lisinopril, Cipro, Flagyl. Allergies: NKDA. Social History: She is a . Two children. No tobacco. Occasional alcohol. She uses tequila s he states. Family History: Father of coronary artery disease, hypertension, congestive heart failure, COPD , prostate cancer, and possible lung cancer. Mother is alive with hypertension. Sister had of lung cancer. Brother has hypertension. Past Medical History: Significant for hypertension, gastroesophageal reflux disease, indigestion for the 2 to 4 years she states, right knee surgery, bilateral tubal ligation. Physical Examination: Vital Signs: Patient is 5 feet 5 inches, 234 pounds, BMI of 39.1 kg/sq m. Temperature 98.4 degrees Fahrenheit, pulse 60, respirations 18, blood pressure 156/85, O2 saturation 98%. General: She is an obese female, lying in bed, in no acute distress, except with inability to swallo w solids and liquids and spitting every once in while. HEENT: Normocephalic, atraumatic. Anicteric. Pupils equal, round, and reactive to light. Extraocu lar movements are intact. Oropharynx is clear. Neck: Supple. No masses. Respirations: Clear to auscultation bilaterally. Cardiac: Regular rate and rhythm. No gallops or rubs. Abdomen: Positive bowel sounds. Soft, nontender, nondistended. No hepatosplenomegaly. Mildly obes e. Extremities: No clubbing, cyanosis, or edema. 2+ pulses. Neurologic: Alert and oriented x3. Grossly nonfocal. 5/5 motor strength. Sensation intact to ligh t touch. Laboratory Data: Patient has a white count of 10.9, hemoglobin 15.1, hematocrit 44.5, MCV of 91, juan carlos telet count of 319. Polys 68%, lymphocytes 21%, monocytes 9%, eosinophils 2%. Sodium 141, potassium 3.0, chloride 109, bicarb 28, BUN 21, creatinine 1.1, glucose 92, calcium 10.1, total bilirubin 0.7, AST of 13, ALT of 32, alkaline phosphatase 93. Troponin I normal. Total protein 9.2, al bumin 4.1, globulin 5.1, lipase of 30. Chest x-ray unremarkable. Impression: 1.Esophageal meat impaction after eating [employer] yesterday 12 noon at [place]. She has a long history of reflux disease over the past 2 to 4 years and a similar event approximately 3 to 4 years ago eating chicken fried steak. This spontaneously resolved on its own within 3 minutes. 2.History of hypertension, arthritis, gastroesophageal reflux disease, indigestion, right knee surge ry, bilateral tubal ligation. Recommendation: 1.Continue IV fluids. 2.Keep patient n.p.o. 3.Proceed with urgent EGD. HERMELINDO/MELANY Voice ID: [id number] Report ID: [id number]
== END 2023-03-13 13:25 | disposition home or self-care (01) ==
LOC: ER 02:13 → ERHOLD 04:51 → 4TH 12:29
PROVIDERS: ADMIT Internal Medicine; ATTEND Internal Medicine
PROC: 0DC38ZZ Extirpation of Matter from Lower Esophagus, Via Natural or Artificial Opening Endoscopic (ICD-10-PCS; principal; 2023-03-13 10:15)
DX: R13.10 Dysphagia, unspecified (principal); T18.128A Food in esophagus causing other injury, initial encounter; I10 Essential (primary) hypertension; K21.9 Gastro-esophageal reflux disease without esophagitis; K22.2 Esophageal obstruction; K44.9 Diaphragmatic hernia without obstruction or gangrene; K20.90 Esophagitis, unspecified without bleeding
CPT/HCPCS: 93005; 85025; 36415; 84484; 83690; 80053; 71045; 43247; J1610; J2704; J2001; J2405; G0378

== ENCOUNTER 2025-03-14 10:01 | Emergency (ER) | payer OTHER ==
--- OUTSIDE RECORDS SUMMARY | 2025-03-14 10:05 | XMS REPORT | Clinical Summary ---
Author Name Unknown Organization [facility] Address [address] [place] [address] Care Team Providers Care Road Test Examiner Name Role Phone Nubia Mccormick MD Unavailable Govind Luna MD Primary Care Provider [email or web address] Edgar Hartley MD Unavailable [phone] Zamzam Andrade DDS Unavailable [phone] Scott Man DMD Unavailable [phone] Lemuel Maldonado MD Unavailable [phone] Sanchez Plasencia MD Unavailable [phone] Dariel Watts MD Unavailable [phone] Allergies No known active allergies Medications hydroCHLOROthia zide (HYDRODIURIL) 25 mg tablet Take 1 tablet (25 mg) by mouth daily. 09/28/19 21 Active omeprazole (PriLOSEC) 20 mg capsule Take 1 capsule (20 mg) by mouth. Active amLODIPine (NORVASC) 5 mg tablet Take 1 tablet (5 mg) by mouth daily. 12/01/19 21 Active levothyroxine (SYNTHROID, LEVOTHROID) 75 mcg tablet Take 1 tablet (75 mcg) by mouth every morning. 06/05/20 21 Active etodolac (LODINE) 500 MG tablet Take 1 tablet (500 mg) by mouth twice daily. 04/06/20 22 Active HYDROcodone-ronen taminophen (NORCO) 7.5 mg-325 mg per tablet Take 1 tablet by mouth at bedtime. 06/10/20 Active ASPIRIN ORAL Take 81 mg by mouth twice daily. Active silver sulfadiazine (Silvadene) 1% creamIndication s:Intertrigo Apply topically to affected area(s) twice daily. 85 g 06/18/20 Active Additional Information Patient not taking.Reason: No longer taking, Reported on 10/13/2024 ezetimibe (ZETIA) 10 mg tablet Take 1 tablet (10 mg) by mouth daily. 09/28/19 Active isosorbide dinitrate (ISORDIL) 20 mg tablet Take 1 tablet (20 mg) by mouth daily. 09/25/19 Active ramipril (ALTACE) 5 MG capsule Take 1 capsule (5 mg) by mouth daily. 09/25/19 Active lisinopril (PRINIVIL,ZESTR IL) 20 mg tablet Take 1 tablet (20 mg) by mouth daily. 09/28/192024 Discontinued traMADol (ULTRAM) 50 mg tablet Take 1 tablet (50 mg) by mouth every 6 (six) hours as needed. 2023 Discontinued(T herapy completed) famotidine (PEPCID) 20 mg tablet Take 1 tablet (20 mg) by mouth at bedtime. 04/19/202024 Discontinued celecoxib (CeleBREX) 200 mg capsule Take 1 capsule (200 mg) by mouth twice daily. 05/29/202023 Discontinued(T herapy completed) Active Problems Patient Care Coordination No te Formatting of this note migh t be different from the original. COVID 19 not detected on 04/30/22 done [facility]. Problem Noted Date Diagnosed Date History of radiation therapy 04/11/2022 Encounter for follow-up exam ination after completed treatment for malignant neoplasm 04/11/2022 Hypothyroidism 12/11/2021 Acquired deformity of nose 10/30/2021 Acquired absence of nose 09/25/2021 Overview (11/10/2021): Added automatically from request for surgery [id number] Basal cell carcinoma of nose 10/10/2020 Overview (10/21/2020): Added automatically from request for surgery [id number] Basal cell carcinoma of skin of nose 10/05/2020 Cancer Staging:Clinical stage from 10/06/2020:Stage II(cT2, cN0, cM0) - Unsigned Overview (10/05/2020): Added automatically from request for surgery [id number] Assessment & Plan (03/22/2021 12:17 PM CDT): The patient will continue to follow-up with Head and Neck Surgery and her local personnel analyst. She was instructed that she may apply Aquaphor to help with her nasal dryness as Nasogel was too aqueous. Assessment & Plan (10/26/2020 5:55 PM CDT): The patient will be scheduled for simulation in approximately 3 weeks. She will need a mouth opening tongue depressing stent with bite block. The patient will not under Covid-19 testing due to recent nasal surgery. Hypertension Arthritis Encounters Date Type Department Care Team Description 10/13/2024 9:15 AM CDT Follow-Up [facility] - Dermatology ([facility]) [address] [facility], 2nd Floor [address] [place], [place] [id number] Dariel Watts MD Senile angioma (Primary Dx); Melanocytic nevus of trunk; Inflamed seborrheic keratosis 10/13/2024 Travel 06/09/2024 11:30 AM LOSS PREVENTION OPERATIONS MANAGER Office Visit [facility] Prevention [facility] - Survivorship, Head/Neck [address] [facility], [address]th [place] [address] Miller Sarabia PA Alpard, Jennifer K, PA Basal cell carcinoma of nose (Primary Dx); Hypothyroidism, not otherwise specified; Acquired deformity of nose; History of radiation therapy 06/09/2024 6:55 AM LOSS PREVENTION OPERATIONS MANAGER Ancillary Procedure CT Imaging [address] [facility], 7th [place] [address] Miller Sarabia PA Hypothyroidism, not otherwise specified; Basal cell carcinoma of nose; Acquired deformity of nose; History of radiation therapy 06/09/2024 6:17 AM LOSS PREVENTION OPERATIONS MANAGER - 06/09/2024 11:59 PM LOSS PREVENTION OPERATIONS MANAGER Hospital Encounter Diagnostic Laboratory [facility] [address] [place] [address] Miller Sarabia PA Hypothyroidism, not otherwise specified; Basal cell carcinoma of nose; Acquired deformity of nose; History of radiation therapy Discharge Disposition: Home 06/09/2024 Orders Only Neuroradiology [address] [place], [place] [id number] Gladys Santos MD 06/09/2024 Travel 03/31/2024 2:45 PM CDT Follow-Up [facility] - Dermatology ([facility]) [address] [facility], [address] [place], [place] [phone] Dariel Watts MD Melanocytic nevus of trunk (Primary Dx); Basal cell carcinoma of skin of nose; Seborrheic keratosis; Senile angioma; Inflamed seborrheic keratosis 03/31/2024 Travel after 03/14/2024 Surgical History Surgery Date Site/Laterality Comments KNEE SURGERY Right multiple knee surgeries RIGHT knee FL EXCISION MALIGNANT LESION F/E/E/N/L 0.5 CM/< 10/20/2020 Midline Procedure: EXCISION OF MALIGNANT LESION OF NOSE WITH DELAYED CLOSURE; Surgeon: Govind Luna MD; Location: MAIN OR; Service: HN - HEAD & NECK SURGERY FL FREE SKIN FLAP W/MICROVASCULAR ANASTOMOSIS 09/26/2021 Arm Lower/Left Procedure: FREE SKIN OR FASCIOCUTANOUS FLAP; Surgeon: Lemuel Maldonado MD; Location: MAIN OR; Service: PLS - PLASTIC SURGERY Medical devices from this surgery are in the Medical Devices section. FL TISSUE MACHINE PACKAGER PLACEMENT BREAST RECONSTRUCTION 09/26/2021 Forehead/N/A Procedure: Placement of foreheadTISSUE MACHINE PACKAGER; Surgeon: Lemuel Maldonado MD; Location: MAIN OR; Service: PLS - PLASTIC SURGERY Medical devices from this surgery are in the Medical Devices section. FL FTH/GFT FREE W/DIRECT CLOSURE TRUNK 20 SQ CM/< 09/26/2021 Abdomen/Midline Procedure: FULL THICKNESS GRAFT OF TRUNK; Surgeon: Lemuel Maldonado MD; Location: MAIN OR; Service: PLS - PLASTIC SURGERY Medical devices from this surgery are in the Medical Devices section. FL EXC B9 LESION MRGN XCP SK TG F/E/E/N/L/M 0.5CM/< 09/26/2021 Face/Left Procedure: EXCISION OF BENIGN LESION OF FACE/EAR/EYELID/NOSE/LIP/MUC OUS MEMB, INCL MARGINS (EXCEPT SKIN TAG); Surgeon: Lemuel Maldonado MD; Location: MAIN OR; Service: PLS - PLASTIC SURGERY Medical devices from this surgery are in the Medical Devices section. FL TEMPORARY CLOSURE EYELIDS SUTURE 09/26/2021 Eyelid/Bilateral Procedure: TEMPORARY CLOSURE OF EYELIDS USING SUTURE; Surgeon: Lemuel Maldonado MD; Location: MAIN OR; Service: PLS - PLASTIC SURGERY Medical devices from this surgery are in the Medical Devices section. FL FOREHEAD FLAP W/PRESERVATION VASCULAR PEDICLE 11/09/2021 Forehead/Midline Procedure: FOREHEAD FLAP; Surgeon: Lemuel Maldonado MD; Location: MAIN OR; Service: PLS - PLASTIC SURGERY FL REMOVAL TISSUE MACHINE PACKAGER W/O INSERTION IMPLANT 11/09/2021 Breast/Midline Procedure: REMOVAL OF TISSUE MACHINE PACKAGER; Surgeon: Lemuel Maldonado MD; Location: MAIN OR; Service: PLS - PLASTIC SURGERY FL CARTILAGE GRAFT COSTOCHONDRAL 11/09/2021 Chest/N/A Procedure: COSTOCHONDRAL CARTILAGE GRAFT; Surgeon: Lemuel Maldonado MD; Location: MAIN OR; Service: PLS - PLASTIC SURGERY FL FTH/GFT FREE W/DIRECT CLOSURE N/E/E/L 20 SQ CM/< 11/09/2021 N/A Procedure: FULL THICKNESS GRAFT OF NOSE/EAR/EYELID/LIP; Surgeon: Lemuel Maldonado MD; Location: MAIN OR; Service: PLS - PLASTIC SURGERY FL ADJT TIS TRNSFR/REARRGMT E/N/E/L DFCT 10 SQ CM/< 11/14/2021 Midline Procedure: REARRANGEMENT OF ADJACENT TISSUE FOR REPAIR OF DEFECT OF NOSE; Surgeon: Lemuel Maldonado MD; Location: MAIN OR; Service: PLS - PLASTIC SURGERY FL IV INJECTION TEST VASCULA R FLOW FLAP/GRAFT 11/14/2021 Forehead/Midline Procedure: INTRAVENOUS INJECTION OF AGENT (EG, FLUORESCEIN) TO TEST VASCULAR FLOW IN FLAP OR GRAFT (SPY); Surgeon: Lemuel Maldonado MD; Location: MAIN OR; Service: PLS - PLASTIC SURGERY FL CARTILAGE GRAFT COSTOCHONDRAL 12/12/2021 Chest/N/A Procedure: COSTOCHONDRAL CARTILAGE GRAFT; Surgeon: Lemuel Maldonado MD; Location: MAIN OR; Service: PLS - PLASTIC SURGERY FL ADJT TIS TRNSFR/REARRGMT E/N/E/L DFCT 10 SQ CM/< 12/12/2021 Midline Procedure: REARRANGEMENT OF ADJACENT TISSUE FOR REPAIR OF DEFECT OF NOSE; Surgeon: Lemuel Maldonado MD; Location: MAIN OR; Service: PLS - PLASTIC SURGERY FL ADJT TIS TRNSFR/REARRGMT E/N/E/L DFCT 10 SQ CM/< 01/18/2022 Midline Procedure: REARRANGEMENT OF ADJACENT TISSUE FOR REPAIR OF DEFECT OF NOSE; Surgeon: Lemuel Maldnoado MD; Location: MAIN OR; Service: PLS - PLASTIC SURGERY FL ADJT TIS TRNSFR/REARRGMT E/N/E/L DFCT 10 SQ CM/< 02/22/2022 Forehead/Midline Procedure: REARRANGEMENT OF ADJACENT TISSUE FOR REPAIR OF DEFECT OF NOSE; Surgeon: Lemuel Maldonado MD; Location: [facility]; Service: PLS - PLASTIC SURGERY FL DELAY FLAP/SCTJ FLAP EYELIDS NOSE EARS/LIPS 02/22/2022 Face/Midline Procedure: DELAY OF FLAP AT EYELID, NOSE, EAR, LIP; Surgeon: Lemuel Maldonado MD; Location: [facility]; Service: PLS - PLASTIC SURGERY FL ADJT TIS TRNSFR/REARRGMT E/N/E/L DFCT 10 SQ CM/< 07/03/2022 Face/N/A Procedure: REARRANGEMENT OF ADJACENT TISSUE FOR REPAIR OF DEFECT OF EYELID(S); Surgeon: Lemuel Maldonado MD; Location: MAIN OR; Service: PLS - PLASTIC SURGERY FL ADJT TIS TRNSFR/REARRGMT E/N/E/L DFCT 10 SQ CM/< 07/03/2022 Face/N/A Procedure: REARRANGEMENT OF ADJACENT TISSUE FOR REPAIR OF DEFECT OF NOSE; Surgeon: Lemuel Maldonado MD; Location: MAIN OR; Service: PLS - PLASTIC SURGERY FL ADJT TIS TRNS/REARGMT F/C/C/M/N/A/G/H/F 10SQCM/< 07/03/2022 N/A Procedure: REARRANGEMENT OF ADJACENT TISSUE FOR REPAIR OF DEFECT OF FOREHEAD; Surgeon: Lemuel Maldonado MD; Location: MAIN OR; Service: PLS - PLASTIC SURGERY FL NASAL ENDOSCOPY DIAGNOSTI C UNI/BI SPX 07/03/2022 Nose/N/A Procedure: UNILATERAL OR BILATERAL DIAGNOSTIC ENDOSCOPY OF NOSE; Surgeon: Lemuel Maldonado MD; Location: MAIN OR; Service: PLS - PLASTIC SURGERY KNEE ARTHROPLASTY 05/28/2023 Right Medical History Medical History Date Comments Hypertension Arthritis Herpes zoster Family History Medical History Relation Name Comments Prostate cancer Father Luis Carlos Galvin Passed with heart failure Breast cancer Sister Diana Yepez . Relation Name Status Comments Father Luis Carlos Galvin Sister Diana Yepez Social History Tobacco Use Types Packs/Day Years Used Date Smoking Tobacco: Never Passive Smoke Exposure: Never Smokeless Tobacco: Never Tobacco Cessation:Counseling Given: Not Answered Alcohol Use Standard Drinks/Week Comments Yes 0 (1 standard drink = 0.6 oz pur e alcohol) weekend occasional Comments No Sex and Gender Information Value Date Recorded Sex Assigned at Female 12/10/2020 6:33 PM CDT Legal Sex Female 8:51 AM LOSS PREVENTION OPERATIONS MANAGER Gender Identity Female 12/10/2020 6:33 PM CDT Sexual Orientation Straight 12/10/2020 6: 33 PM CDT Obstetrics History Last Filed Vital Signs Vital Sign Reading Time Taken Comments Blood Pressure 125/73 10/13/2024 8:59 AM CDT Pulse 78 10/13/2024 8:59 AM CDT Temperature - - Respiratory Rate 16 10/13/2024 8:59 AM CDT Oxygen Saturation - - Inhaled Oxygen Concentration - - Weight 111.5 kg (245 lb 13 oz) 10/13/2024 8:59 A M CDT Height 165.5 cm (5' 5.16") 06/09/2024 9:38 AM CS T Body Mass Index 40.71 06/09/2024 9:38 AM LOSS PREVENTION OPERATIONS MANAGER Plan of Treatment Upcoming Encounters Date Type Department Care Team (Late st Contact Info) Description 04/22/2025 11:15 AM CDT Follow-Up [facility] - Dermatology ([facility]) [address] [facility], 2nd [place] [address] Dariel Watts MD [facility] [place] [address] [email or web address] 06/09/2025 7:45 AM LOSS PREVENTION OPERATIONS MANAGER Appointment Diagnostic Laboratory Center [address] [place] [address] Emi Dick PA [address] [place] [address] [email or web address] 06/09/2025 8:05 AM LOSS PREVENTION OPERATIONS MANAGER Ancillary Procedure CT Imaging [address] [place] [address], [address] [place] [address] Emi Dick PA [facility] [place] [address] [email or web address] 06/09/2025 9:45 AM LOSS PREVENTION OPERATIONS MANAGER Ancillary Procedure X-Ray Outpatient Center [address] [place] [address], [address] [place] [address] Emi Dick PA [address] [place] [address] [email or web address] 06/09/2025 10:30 AM LOSS PREVENTION OPERATIONS MANAGER Office Visit Cancer Prevention Center - Survivorship, Head/Neck [address] [place] [address], [address] [place] [address] Emi Dick PA [facility] [place] [address] [email or web address] Health Maintenance Due Date Last Done Comments Pneumococcal Vaccine: 50+ Years (1 of 1 - PCV) 011 COVID-19 Vaccine ( - 2023- season) 2024 Influenza Vaccine (#1) 2025 Medical Devices Implanted Type Area Core Shaper Device Identifier Shelf Expiration Date Model / Serial / Lot Linen Keeper Microvascular Anastomotic Device 3.0mm - [id number] Implanted:Qty: 1 on 09/26/2021 by Lemuel Maldonado MD at [facility] CardioPulm Left: Neck 3M SUZY 02/28/2026 [id number] / / [id number] Tissue Staff Trainer Rectangle 50cc - [id number] Implanted:Qty: 1 on 09/26/2021 by Lemuel Maldonado MD at [facility] Explanted:2021 by Lemuel Maldonado MD (Quantity not on file) Implant N/A: Forehead MENTOR SUZY 08/16/2025 [id number] / [id number] / [id number] Right Acl Repair Procedures Procedure Name Priority Date/Time Associated Diagnosis Comments CT SOFT TISSUE NECK W CONTRAST Routine 06/09/2024 8:15 AM LOSS PREVENTION OPERATIONS MANAGER Hypothyroidism, not otherwise specified Basal cell carcinoma of nose Acquired deformity of nose History of radiation therapy POC CREATININE Routine 06/09/2024 7:04 AM LOSS PREVENTION OPERATIONS MANAGER HEMOGLOBIN A1C Routine 06/09/2024 6:34 AM LOSS PREVENTION OPERATIONS MANAGER Hypothyroidism, not otherwise specified Basal cell carcinoma of nose Acquired deformity of nose History of radiation therapy CARCINOEMBRYONIC ANTIGEN Routine 024 6:34 AM LOSS PREVENTION OPERATIONS MANAGER Hypothyroidism, not otherwise specified Basal cell carcinoma of nose Acquired deformity of nose History of radiation therapy VITAMIN D 25 HYDROXY LEVEL Routine 06/09/2024 6:34 AM LOSS PREVENTION OPERATIONS MANAGER Hypothyroidism, not otherwise specified Basal cell carcinoma of nose Acquired deformity of nose History of radiation therapy ELECTROLYTE PANEL Routine 06/09/2024 6:3 4 AM LOSS PREVENTION OPERATIONS MANAGER Hypothyroidism, not otherwise specified Basal cell carcinoma of nose Acquired deformity of nose History of radiation therapy ALANINE AMINOTRANSFERASE Routine 024 6:34 AM LOSS PREVENTION OPERATIONS MANAGER Hypothyroidism, not otherwise specified Basal cell carcinoma of nose Acquired deformity of nose History of radiation therapy LACTATE DEHYDROGENASE Routine 06/09/2024 6:34 AM LOSS PREVENTION OPERATIONS MANAGER Hypothyroidism, not otherwise specified Basal cell carcinoma of nose Acquired deformity of nose History of radiation therapy ALKALINE PHOSPHATASE Routine 06/09/2024 6:34 AM LOSS PREVENTION OPERATIONS MANAGER Hypothyroidism, not otherwise specified Basal cell carcinoma of nose Acquired deformity of nose History of radiation therapy ASPARTATE AMINOTRANSFERASE Routine 06/09/2024 6:34 AM LOSS PREVENTION OPERATIONS MANAGER Hypothyroidism, not otherwise specified Basal cell carcinoma of nose Acquired deformity of nose History of radiation therapy FREE THYROXINE Routine 06/09/2024 6:34 AM LOSS PREVENTION OPERATIONS MANAGER Hypothyroidism, not otherwise specified Basal cell carcinoma of nose Acquired deformity of nose History of radiation therapy THYROID STIMULATING HORMONE Routine 06/09/2024 6:34 AM LOSS PREVENTION OPERATIONS MANAGER Hypothyroidism, not otherwise specified Basal cell carcinoma of nose Acquired deformity of nose History of radiation therapy CREATININE Routine 06/09/2024 6:34 AM LOSS PREVENTION OPERATIONS MANAGER Hypothyroidism, not otherwise specified Basal cell carcinoma of nose Acquired deformity of nose History of radiation therapy BLOOD UREA NITROGEN Routine 06/09/2024 6 :34 AM LOSS PREVENTION OPERATIONS MANAGER Hypothyroidism, not otherwise specified Basal cell carcinoma of nose Acquired deformity of nose History of radiation therapy after 03/14/2024 Results * CT Soft Tissue Neck with Contrast (06/09/2024 8:15 AM LOSS PREVENTION OPERATIONS MANAGER) Anatomical Region Laterality Modality Neck Computed Tomogra phy 06/09/2024 3:46 PM LOSS PREVENTION OPERATIONS MANAGER Impressions 06/09/2024 4:28 PM LOSS PREVENTION OPERATIONS MANAGER 1. No evidence of disease recurrence. 2. No cervical lymphadenopathy. ACTIONABLE ITEMS/RECOMMENDATIONS*: None. *An Actionable Finding is a finding that may be unrelated to the original reason for imaging but potentially actionable, meaning further investigation may be necessary. The Actionable Findings Vigilance Unit (AFVU) assists medical providers with responding to additional radiologic findings that are unexpected and potentially actionable. I personally reviewed these image(s) along with the resident's/fellow's interpretations, certify that if a procedure was performed I was physically present, and agree with the final report. Narrative 06/09/2024 4:28 PM LOSS PREVENTION OPERATIONS MANAGER FULL RESULT: Examination: CT SOFT TISSUE NECK W CONTRAST on 06/09/2024 8:15 AM. CLINICAL HISTORY: Hypothyroidism, not otherwise specified Basal cell carcinoma of nose Acquired deformity of nose History of radiation therapy INDICATION: BCC Nose with PNI, Radiation to facial bones COMPARISON: Multiple prior neck CTs dating back to 10/05/2020, the most recent dated 04/11/2023.. TECHNIQUE: CT neck with IV contrast was performed. FINDINGS: Primary site: There are stable postoperative changes from total nasal reconstruction with a left forehead rotational flap and. No nodular enhancement to suggest disease recurrence. Lymph nodes: There is no lymphadenopathy. Other findings: The upper aerodigestive tract is unremarkable. The major salivary glands are unremarkable. The thyroid gland is mildly enlarged. The visualized paranasal sinuses are predominantly clear. The cervical arteries and veins are patent. The visualized brain parenchyma is unremarkable. There is an unchanged cyst along the posterior aspect of the pituitary gland. The visualized lung apices are clear. Procedure Note Young Hendricks MD - 06/09/2024 FULL RESULT: Examination: CT SOFT TISSUE NECK W CONTRAST on 06/09/2024 8:15 AM. CLINICAL HISTORY: Hypothyroidism, not otherwise specified Basal cell carcinoma of nose Acquired deformity of nose History of radiation therapy INDICATION: BCC Nose with PNI, Radiation to facial bones COMPARISON: Multiple prior neck CTs dating back to 10/05/2020, the mostrecent dated 04/11/2023.. TECHNIQUE: CT neck with IV contrast was performed. FINDINGS: Primary site: There are stable postoperative changes from total nasal reconstructionwith a left forehead rotational flap and. No nodular enhancement tosuggest disease recurrence. Lymph nodes: There is no lymphadenopathy. Other findings: The upper aerodigestive tract is unremarkable. The major salivary glands are unremarkable. The thyroid gland is mildly enlarged. The visualized paranasal sinuses are predominantly clear. The cervical arteries and veins are patent. The visualized brain parenchyma is unremarkable. There is an unchangedcyst along the posterior aspect of the pituitary gland. The visualized lung apices are clear. IMPRESSION: 1. No evidence of disease recurrence. 2. No cervical lymphadenopathy. ACTIONABLE ITEMS/RECOMMENDATIONS*: None. *An Actionable Finding is a finding that may be unrelated to the originalreason for imaging but potentially actionable, meaning furtherinvestigation may be necessary. The Actionable Findings Vigilance Unit(AFVU) assists medical providers with responding to additional radiologicfindings that are unexpected and potentially actionable. I personally reviewed these image(s) along with the resident's/fellow'sinterpretations, certify that if a procedure was performed I wasphysically present, and agree with the final report. Miller HERNANDEZ IMG CT ORDERABLES Final Result * (ABNORMAL) POC Creatinine (06/09/2024 7:04 AM LOSS PREVENTION OPERATIONS MANAGER) POC Creatinine 1.1 0.6 - 1.3 mg/dL 06/09/2024 7:06 AM LOSS PREVENTION OPERATIONS MANAGER [facility] Comment:Medications, especia lly hydroxyurea or supplements, such as ascorbate, can interfere with test results causing a falsely and significantly higher result than expected. If a problem is suspected with a patient's result, a sample should be sent to the laboratory for confirmatory testing. POC eGFR 56(L) >=60 mL/min/1.7 3 sq. m 06/09/2024 7:06 AM LOSS PREVENTION OPERATIONS MANAGER [facility] Comment: The eGFRcr is calculated with the 2020 CKD-EPI creatinine equation using creatinine, patient's age, and sex for adults 18 years of age and older. Other factors, especially muscle mass, may affect accuracy and need to be considered. According to the Kidney Disease: Improving Global Outcomes (KDIGO) CKD Work Group 2012 Clinical Practice Guideline, chronic kidney disease (CKD) is defined as the abnormalities of kidney structure or function, present for more than 3 months, with implications for health. CKD should be classified by cause, GFR category, and albuminuria category. KDIGO guidelines provide the following GFR categories. Stage / Description / GFR mL/min/1.73 m2: G1* / Normal or high / >= 90 G2* / Mildly decreased / 60-89 G3a / Mildly to moderately decreased / 45-59 G3b / Moderately to severely decreased / 30-44 G4 / Severely decreased / 15-29 G5 / Kidney failure / <15 *In the absence of evidence of kidney damage, neither G1 nor G2 fulfill criteria for CKD. Blood 06/09/2024 7:04 AM LOSS PREVENTION OPERATIONS MANAGER 06/09/2024 7:06 AM LOSS PREVENTION OPERATIONS MANAGER Narrative [facility] - 06/09/2024 7:06 AM LOSS PREVENTION OPERATIONS MANAGER Method description: The i-STAT is an analyzer used for in vitro quantification of various analytes in whole blood. The device uses a single disposable cartridge which contains microfabricated sensors, a calibration solution, fluidics system, and a waste chamber. Each test cartridge contains chemically sensitive biosensors on a silicon chip that are configured to perform specific tests. The microfabricated sensors measure analyte concentration by an electrochemical assay. Miller HERNANDEZ POCT ORDERABLES - DEVICE Final Result Performing Organization Address [facility]/ZIP Co de Phone Number [facility] Unless otherwise noted, all lab tests performed by: Division of Pathology and Laboratory Medicine [address] [place] [id number] * Vitamin D 25OH (06/09/2024 6:34 AM LOSS PREVENTION OPERATIONS MANAGER) [facility] Vitamin D 25 OH 32 30 - 100 ng/mL 06/09/2024 7:47 AM LOSS PREVENTION OPERATIONS MANAGER [facility] Blood Venipuncture / Unknown 06/09/2024 6:34 AM LOSS PREVENTION OPERATIONS MANAGER 06/09/2024 6:38 AM LOSS PREVENTION OPERATIONS MANAGER Narrative [facility] - 06/09/2024 7:47 AM LOSS PREVENTION OPERATIONS MANAGER Reference Range: Deficiency: <=20 ng/mL Insufficiency: 21-29 ng/mL Sufficiency: 30-100 ng/mL Potential toxicity: >100 ng/mL Miller HERNANDEZ LAB BLOOD ORDERABLES Final Resu lt [facility] Unless otherwise noted, all lab tests performed by: Division of Pathology and Laboratory Medicine [address] [place] [id number] * BUN (06/09/2024 6:34 AM LOSS PREVENTION OPERATIONS MANAGER) [facility] BUN 14 6 - 23 mg/dL 06/09/2024 7 :08 AM LOSS PREVENTION OPERATIONS MANAGER [facility] Blood Venipuncture / Unknown 06/09/2024 6:34 AM LOSS PREVENTION OPERATIONS MANAGER 06/09/2024 6:38 AM LOSS PREVENTION OPERATIONS MANAGER us Barnettn Fei Issay PA LAB BLOOD ORDERABLES Final Resu lt Performing Organization Address [facility] Co de Phone Number [address] [place] [address] * ALT (06/09/2024 6:34 AM LOSS PREVENTION OPERATIONS MANAGER) ALT 24 <=33 U/L 06/09/2024 7:0 8 AM LOSS PREVENTION OPERATIONS MANAGER [facility] Blood Venipuncture / Unknown 06/09/2024 6:34 AM LOSS PREVENTION OPERATIONS MANAGER 06/09/2024 6:38 AM LOSS PREVENTION OPERATIONS MANAGER us Barnettn Fei Issay PA LAB BLOOD ORDERABLES Final Resu lt Performing Organization Address [facility] de Phone Number [address] [place] [address] * Aspartate Aminotransferase (06/09/2024 6:34 AM LOSS PREVENTION OPERATIONS MANAGER) AST 22 <=32 U/L 06/09/2024 7:0 8 AM LOSS PREVENTION OPERATIONS MANAGER [facility] Blood Venipuncture / Unknown 06/09/2024 6:34 AM LOSS PREVENTION OPERATIONS MANAGER 06/09/2024 6:38 AM LOSS PREVENTION OPERATIONS MANAGER Miller Fei Sarabia PA LAB BLOOD ORDERABLES Final Resu lt Performing Organization Address [facility] de Phone Number [address] [place] [address] * TSH (06/09/2024 6:34 AM LOSS PREVENTION OPERATIONS MANAGER) Thyroid Stimulating Hormone 3.90 0.27 - 4.20 mcunit/mL 06/09/2024 7:26 AM LOSS PREVENTION OPERATIONS MANAGER [facility] Blood Venipuncture / Unknown 06/09/2024 6:34 AM LOSS PREVENTION OPERATIONS MANAGER 06/09/2024 6:38 AM LOSS PREVENTION OPERATIONS MANAGER us Barnettn Fei Issay PA LAB BLOOD ORDERABLES Final Resu lt [address] [place] [address] * Free T4 (06/09/2024 6:34 AM LOSS PREVENTION OPERATIONS MANAGER) T4 (Thyroxine) Free 1.25 0.92 - 1.68 ng/dL 06/09/2024 7:26 AM LOSS PREVENTION OPERATIONS MANAGER [facility] Blood Venipuncture / Unknown 06/09/2024 6:34 AM LOSS PREVENTION OPERATIONS MANAGER 06/09/2024 6:38 AM LOSS PREVENTION OPERATIONS MANAGER Miller Tresata Cornell [place] LAB BLOOD ORDERABLES Final Resu lt Performing Organization Address City/[facility]/ZIP Co de Phone Number [address] [place] [address] * Alkaline Phosphatase (06/09/2024 6:34 AM LOSS PREVENTION OPERATIONS MANAGER) [facility] Signature Alkaline Phosphatase 100 35 - 104 U/L 06/09/2024 7:08 AM [facility] Blood Venipuncture / Unknown 06/09/2024 6:34 AM LOSS PREVENTION OPERATIONS MANAGER 06/09/2024 6:38 AM LOSS PREVENTION OPERATIONS MANAGER Miller Tresata [place] LAB BLOOD ORDERABLES Final Resu lt Performing Organization Address City/[facility] Co de Phone Number [address] [place] [address] * LDH (06/09/2024 6:34 AM LOSS PREVENTION OPERATIONS MANAGER) [facility] LDH 204 135 - 214 U/L 06/09/2024 8:11 AM [facility] Blood Venipuncture / Unknown 06/09/2024 6:34 AM LOSS PREVENTION OPERATIONS MANAGER 06/09/2024 6:38 AM LOSS PREVENTION OPERATIONS MANAGER Narrative [facility] - 06/09/2024 8:11 AM LOSS PREVENTION OPERATIONS MANAGER Results greater than 1651 U/L may not be reliable due to matrix effect with extended dilution as it exceeds the hot plate plywood press operator's recommended limit. Caution should be exercised when interpreting such values and done in conjunction with clinical context. Miller HERNANDEZ LAB BLOOD ORDERABLES Final Resu lt [facility] [address] [place] [address] * Hemoglobin A1c (06/09/2024 6:34 AM LOSS PREVENTION OPERATIONS MANAGER) Hemoglobin A1c 5.6 4.3 - 5.6 % 06/09/2024 7:22 AM LOSS PREVENTION OPERATIONS MANAGER [facility] Blood Venipuncture / Unknown 06/09/2024 6:34 AM LOSS PREVENTION OPERATIONS MANAGER 06/09/2024 6:38 AM LOSS PREVENTION OPERATIONS MANAGER Narrative [facility] - 06/09/2024 7:22 AM LOSS PREVENTION OPERATIONS MANAGER HbA1c values >=6.5% are diagnostic of diabetes mellitus. Diagnosis should be confirmed by repeat testing. Therapeutic Action suggested: >8.0% HbA1c; Goal of therapy: <7.0% HbA1c Miller HERNANDEZ LAB BLOOD ORDERABLES Final Resu lt Performing Organization Address [facility]/ZIP Co de Phone Number [facility] Unless otherwise noted, all lab tests performed by: Division of Pathology and Laboratory Medicine [address] [place] [address] * Creatinine (06/09/2024 6:34 AM LOSS PREVENTION OPERATIONS MANAGER) Creatinine 0.84 0.51 - 0.95 mg/dL 06/09/2024 7:08 AM [facility] eGFR 78 >=60 mL/min/1.7 3 sq. m 06/09/2024 7:08 AM [facility] Comment: The eGFRcr is calculated with the 2020 CKD-EPI creatinine equation using creatinine, patient's age, and sex for adults 18 years of age and older. Other factors, especially muscle mass, may affect accuracy and need to be considered. According to the Kidney Disease: Improving Global Outcomes (KDIGO) CKD Work Group 2012 Clinical Practice Guideline, chronic kidney disease (CKD) is defined as the abnormalities of kidney structure or function, present for more than 3 months, with implications for health. CKD should be classified by cause, GFR category, and albuminuria category. KDIGO guidelines provide the following GFR categories. Stage / Description / GFR mL/min/1.73 m2: G1* / Normal or high / >= 90 G2* / Mildly decreased / 60-89 G3a / Mildly to moderately decreased / 45-59 G3b / Moderately to severely decreased / 30-44 G4 / Severely decreased / 15-29 G5 / Kidney failure / <15 *In the absence of evidence of kidney damage, neither G1 nor G2 fulfill criteria for CKD. Blood Venipuncture / Unknown 06/09/2024 6:34 AM LOSS PREVENTION OPERATIONS MANAGER 06/09/2024 6:38 AM LOSS PREVENTION OPERATIONS MANAGER [facility] LAB BLOOD ORDERABLES Final Resu lt Performing Organization Address [facility] de Phone Number [address] [place] [address] * CEA (06/09/2024 6:34 AM LOSS PREVENTION OPERATIONS MANAGER) Carcinoembryonic Antigen 1.7 <=3.8 ng/mL 06/09/2024 7:26 AM [facility] Blood Venipuncture / Unknown 06/09/2024 6:34 AM LOSS PREVENTION OPERATIONS MANAGER 06/09/2024 6:38 AM LOSS PREVENTION OPERATIONS MANAGER Narrative [facility] - 06/09/2024 7:26 AM LOSS PREVENTION OPERATIONS MANAGER Reference Ranges (age 20-69 years): Non-smoker: <= 3.8 ng/mL Smoker: <= 5.5 ng/mL This test is measured by electrochemiluminescence immunoassay on Nicolle Yordan immunoassay analyzers. Results obtained in different methods are not interchangeable. [facility] LAB BLOOD ORDERABLES Final Resu lt Performing Organization Address [facility] Co de Phone Number [address] [place] [address] * Electrolyte Panel (06/09/2024 6:34 AM LOSS PREVENTION OPERATIONS MANAGER) Sodium Level 138 136 - 145 mmol/L 06/09/2024 7:08 AM [facility] Potassium Level 3.5 3.4 - 4.5 mmol/L 06/09/2024 7:08 AM [facility] Chloride 101 98 - 107 mmol/L 06/09/2024 7:08 AM [facility] CO2 25 22 - 29 mmol/L 06/09/2024 7:08 AM [facility] Anion Gap 12 4 - 14 mmol/L 06/09/2024 7:08 AM [facility] Blood Venipuncture / Unknown 06/09/2024 6:34 AM LOSS PREVENTION OPERATIONS MANAGER 06/09/2024 6:38 AM LOSS PREVENTION OPERATIONS MANAGER Miller HERNANDEZ LAB BLOOD ORDERABLES Final Resu lt [facility] [address] [place] [address] after 03/14/2024 Insurance [employer] PPO POS [employer] PPO POS Advance Directives * Full Code (Latest Code Status on File) Date Activated Date Inactivated Comments 07/03/2022 11:56 AM 07/03/2022 2:04 PM * Full Code Date Activated Date Inactivated Comments 02/22/2022 10:42 AM 02/22/2022 12:49 PM * Full Code Date Activated Date Inactivated Comments 01/18/2022 10:41 AM 01/18/2022 2:33 PM * Full Code Date Activated Date Inactivated Comments 11/10/2021 8:27 AM 11/18/2021 1:57 PM * Full Code Date Activated Date Inactivated Comments 11/09/2021 11:20 PM 11/10/2021 8:[address] Test Examiner Relationship Specialty Start [place] [id number] [place] [phone] [email or web address] PCP - External Referring Dermatology 09/28/20 [place] [address] [place] [phone] [email or web address] PCP - General Head and Neck Surgery 10/05/20 Edgar Hartley MD [address] [place] [id number] [email or web address] PCP - External Primary Care Provider Family Practice 11/16/20 Zamzam Andrade DDS [address] [place] [phone] [email or web address] Consulting Physician Dental Oncology 11/14/20 Scott Man DMD [address] [place] [phone] [email or web address] Consulting Physician Dental Oncology 10/10/20 Lemuel Maldonado MD [address] [place] [phone] [email or web address] Consulting Physician Plastic and Reconstructive Surgery 10/10/20 Sanchez Plasencia MD [address] [place] [address] [email or web address] Consulting Physician Radiation Oncology 10/26/20 Dariel Watts MD [address] [place] [address] [email or web address] Consulting Physician Dermatology 05/31/22
[2025-03-14] MEDS ORDERED: METOCLOPRAMIDE 10 MG/2mL INJ ONE (10:17)
[2025-03-14] MEDS ORDERED: MAGNESIUM SULFATE 1 gm IVPB 1 GM/100 ML BAG IV ONE (10:17)
[2025-03-14] MEDS ORDERED: GLUCAGON 1 MG/VIAL ONE ×2 (10:17→11:30)
--- NOTE | 2025-03-14 12:14 | EDPHYS ---
Physician Documentation [facility] Name: Natacha Ríos Age: 64 yrs Sex: Female : 1960 Arrival Date: 03/14/2025 Time: 10:01 Bed 4 Private MD: ED Physician Emanuel Jackson HPI: 03/14 10:18 This 64 yrs old Female presents to ER via Ambulatory with complaints of Foreign Body In rn Throat - CHICKEN, Back Pain - UPPER SHOULDER AREA. 10:18 Patient reports has had esophageal problems before, has had esophageal dilatation in rn the past. Has also had food impactions. Patient reports usually diligent about cutting up food but last night had a big piece of chicken and reports foreign body sensation in esophagus. It is not as bad as before and is able to sip water and allow it to pass but cannot drink large amounts of water. No vomiting. Still feels it in esophagus. No difficulty breathing or cough.. Historical: - Allergies: 10:16 No Known Allergies; iw - PMHx: 10:16 Arthritis; Hypertension; Hypertensive disorder; Hypothyroidism; skin cancer; iw - PSHx: 10:16 skin cancer removed from nose with skin flip surgery; iw - Immunization history:: Adult Immunizations not up to date. - Infectious Disease History:: Denies. - Social history:: Smoking status: Patient denies any tobacco usage or history of. - Family history:: not pertinent. - Hospitalizations: : No recent hospitalization is reported. ROS: 10:18 Constitutional: Negative for fever, chills, and weight loss, Cardiovascular: Negative rn for chest pain, palpitations, and edema, Respiratory: Negative for shortness of breath, cough, wheezing, and pleuritic chest pain, Abdomen/GI: Positive for esophageal food impaction and foreign body sensation MS/Extremity: Negative for injury and deformity, Skin: Negative for injury, rash, and discoloration, Neuro: Negative for headache, weakness, numbness, tingling, and seizure, Exam: 10:18 Constitutional: This is a well developed, well nourished patient who is awake, alert, rn and in no acute distress. ENT: No stridor Respiratory: Speaking full sentences, unlabored Vital Signs: 10:17 BP 179 / 88; Pulse 60; Resp 18; Temp 97.7; Pulse Ox 96% on R/A; Weight 108.86 kg; iw Height 5 ft. 5 in. ; Pain 6/10; 12:00 BP 152 / 89; Pulse 65; Resp 16 S; Pulse Ox 97% on R/A; aa5 10:17 Body Mass Index 39.94 (108.86 kg, 165.1 cm) iw 10:17 Pain Scale: Adult iw MDM: 10:06 Medical Screening Exam initiated rn 11:27 ED course: Patient did not tolerate water, threw up. Will repeat glucagon and if does rn not work we will organize transfer for GI. 12:12 Differential diagnosis: Esophageal food impaction. Data reviewed: vital signs, nurses rn notes, and as a result, I will admit patient. Consideration of Admission/Observation Patient was admitted/placed on observation. Escalation of care including admission/observation considered. Counseling: I had a detailed discussion with the patient and/or guardian regarding the historical points, exam findings, and any diagnostic results supporting the discharge/admit diagnosis, the need to transfer to another facility, [facility] does not immediately have the required specialist. Response to treatment: There is no appreciated change of the patient's symptoms at this time. ED course: Glucagon repeated and patient still unable to tolerate p.o. Small sips of water caused her to throw up. No GI here so we will organize transfer to [place]. 13:18 ED course: Accepted for transfer to [facility]. rn 03/14 10:07 Order name: IV Start; Complete Time: 10:31 rn Administered Medications: 10:25 Drug: Glucagon IVP 1 mg IVP once Route: IVP; Site: right antecubital; aa5 10:30 Follow up: Response: No adverse reaction aa5 10:25 Drug: metoCLOPramide IVP 5 mg IVP once; over 1 to 2 minutes Route: IVP; Site: right aa5 antecubital; 10:30 Follow up: Response: No adverse reaction aa5 10:28 Drug: Magnesium Sulfate IVPB 1 grams IVPB once over 1 hrs Route: IVPB; Infused Over: 1 aa5 hrs; Site: right antecubital; 11:28 Follow up: IV Status: Completed infusion; IV Intake: 100ml aa5 11:38 Drug: Glucagon IVP 1 mg IVP once Route: IVP; Site: right antecubital; nh2 11:45 Follow up: Response: No adverse reaction aa5 Disposition Summary: 03/14/25 12:13 Transfer Ordered Notes: Transfer Location: [facility] rn Reason: Higher level of care rn Condition: Stable rn Problem: new rn Symptoms: are unchanged rn Accepting Physician: (03/14/25 14:35) justus Diagnosis - Food in esophagus - Food impaction rn Forms: - Medication Reconciliation Form rn - SBAR form rn Signatures: Leny Alexander RN RN iw Emanuel Jackson MD MD rn Calderon, Audri, RN RN aa5 Pepe Tamayo Jr RN RN nh2 Corrections: (The following items were deleted from the chart) 14:35 12:13 Dr. rod iw
--- NOTE | 2025-03-14 12:14 | ER ---
Nurse's Notes [facility] Name: Natacha Ríos Age: 64 yrs Sex: Female : 1960 Arrival Date: 03/14/2025 Time: 10:01 Bed 4 Private MD: Diagnosis: Food in esophagus-Food impaction Presentation: 03/14 10:15 Chief complaint: Patient states: feels like a piece of chicken is stuck in her throat iw since last night ,she has had this issue before, has had her esophagus stretched in past, this episode is not as severe , she can tolerate sips of water. Coronavirus screen: At this time, the client does not indicate any symptoms associated with coronavirus-19. Ebola Screen: No symptoms or risks identified at this time. Initial Sepsis Screen: Does the patient meet any 2 criteria? No. Patient's initial sepsis screen is negative. Does the patient have a suspected source of infection? No. Patient's initial sepsis screen is negative. Risk Assessment: Do you want to hurt yourself or someone else? Patient reports no desire to harm self or others. Onset of symptoms was March 13, 2025. 10:15 Method Of Arrival: Ambulatory iw 10:15 Acuity: KENDRA 3 iw Historical: - Allergies: 10:16 No Known Allergies; iw - PMHx: 10:16 Arthritis; Hypertension; Hypertensive disorder; Hypothyroidism; skin cancer; iw - PSHx: 10:16 skin cancer removed from nose with skin flip surgery; iw - Immunization history:: Adult Immunizations not up to date. - Infectious Disease History:: Denies. - Social history:: Smoking status: Patient denies any tobacco usage or history of. - Family history:: not pertinent. - Hospitalizations: : No recent hospitalization is reported. Screenin:15 [facility] ED Fall Risk Assessment (Adult) History of falling in the last 3 months, aa5 including since admission No falls in past 3 months (0 pts) Confusion or Disorientation No (0 pts) Intoxicated or Sedated No (0 pts) Impaired Gait No (0 pts) Mobility Assist Device Used No (0 pt) Altered Elimination No (0 pt) Score/Fall Risk Level 0 - 2 = Low Risk Oriented to surroundings, Maintained a safe environment, Educated pt \T\ family on fall prevention, incl call for assistance when getting out of bed, Assessed \T\ reinforced patient's understanding of fall precautions. Abuse screen: Denies threats or abuse. Nutritional screening: No deficits noted. Tuberculosis screening: No symptoms or risk factors identified. Assessment: 10:20 General: Appears comfortable, Behavior is calm, cooperative, Reports Feeling piece of aa5 chicken stuck in esophagus, pt points to upper chest. Pain: Denies pain. Neuro: Level of Consciousness is awake, alert, obeys commands, Oriented to person, place, time, situation. Cardiovascular: Patient's skin is warm and dry. Respiratory: Airway is patent Respiratory effort is even, unlabored, Respiratory pattern is regular, symmetrical. GI: No signs and/or symptoms were reported involving the gastrointestinal system. Reports nausea, able to tolerate sips of water Patient currently denies vomiting. : No signs and/or symptoms were reported regarding the genitourinary system. EENT: No signs and/or symptoms were reported regarding the EENT system. Derm: Skin is pink, warm \T\ dry. Musculoskeletal: Range of motion: intact in all extremities. 11:00 Reassessment: Patient is alert, oriented x 3, equal unlabored respirations, skin aa5 warm/dry/pink. 12:30 Reassessment: Patient is alert, oriented x 3, equal unlabored respirations, skin aa5 warm/dry/pink. Patient states symptoms have not improved. Vital Signs: 10:17 BP 179 / 88; Pulse 60; Resp 18; Temp 97.7; Pulse Ox 96% on R/A; Weight 108.86 kg; iw Height 5 ft. 5 in. ; Pain 6/10; 12:00 BP 152 / 89; Pulse 65; Resp 16 S; Pulse Ox 97% on R/A; aa5 10:17 Body Mass Index 39.94 (108.86 kg, 165.1 cm) iw 10:17 Pain Scale: Adult iw ED Course: 10:05 Patient arrived in ED. cj3 10:06 Emanuel Jackson MD is Attending Physician. rn 10:14 Kathy Lee, ERICA is Primary Nurse. aa5 10:16 Triage completed. iw 10:17 Arm band placed on. iw 10:20 Patient has correct armband on for positive identification. Bed in low position. Call aa5 light in reach. Side rails up X2. Pulse ox on. NIBP on. 10:25 Inserted saline lock: 22 gauge in right antecubital area, using aseptic technique. aa5 Flushed with 10 mL NS. 11:25 No provider procedures requiring assistance completed. aa5 12:15 initiated a transfer with Agusto from the [facility] transfer center. eb 13:40 PT accepted as transfer to [facility] Rm [id number]; [facility] will em1 transport. 14:35 Patient transferred, IV remains in place. iw Administered Medications: 10:25 Drug: Glucagon IVP 1 mg IVP once Route: IVP; Site: right antecubital; aa5 10:30 Follow up: Response: No adverse reaction aa5 10:25 Drug: metoCLOPramide IVP 5 mg IVP once; over 1 to 2 minutes Route: IVP; Site: right aa5 antecubital; 10:30 Follow up: Response: No adverse reaction aa5 10:28 Drug: Magnesium Sulfate IVPB 1 grams IVPB once over 1 hrs Route: IVPB; Infused Over: 1 aa5 hrs; Site: right antecubital; 11:28 Follow up: IV Status: Completed infusion; IV Intake: 100ml aa5 11:38 Drug: Glucagon IVP 1 mg IVP once Route: IVP; Site: right antecubital; nh2 11:45 Follow up: Response: No adverse reaction aa5 Medication: 11:22 VIS not applicable for this client. aa5 Intake: 11:28 IV: 100ml; Total: 100ml. aa5 Outcome: 12:13 ER care complete, transfer ordered by . rn 14:33 Transferred by ground [facility] EMS . Note: BSLSL iw 14:33 Condition: good 14:33 Instructed on the need for transfer, Demonstrated understanding of instructions, 14:35 Patient left the ED. iw Signatures: Leny Alexander RN RN iw Emanuel Jackson MD MD rn Martinez, Eric em1 Kathy Lee RN RN aa5 Janneth Garcia Jr, Noel RN RN nh2 Christina Fofana cj3 Corrections: (The following items were deleted from the chart) 11:23 10:30 Reassessment: Patient is alert, oriented x 3, equal unlabored respirations, skin aa5 warm/dry/pink. aa5
[2025-03-14 14:53] VITALS: BP 179/88; TEMP 97.7; O2SAT 96
== END 2025-03-14 14:35 | disposition short-term general hospital (02) ==
LOC: ER 10:01
DX: T18.128A Food in esophagus causing other injury, initial encounter (principal)
CPT/HCPCS: 96365; 96375; 99285; J1610 ×2; J3475; J2765